=== PATIENT | female | born 1950 | race Caucasian/White ===

== ENCOUNTER → 2017-12-03 | Outpatient (CLI) | payer OTHER ==
[~2017-12-03] MED LIST: BACTRIM DS TAB1 EACH PO; CARISOPRODOL 3350 MG PO; CRESTOR PO; CYMBALTA PO; ESTRACE0.5 MG PO; GOLYTELY SOLU4000 ML PO; HYDROCODONE-AP1 EAC6 PO; IBUPROFEN 800800 M1 PO; IMITREX100 MG PO; KEFLEX500 MG PO; LASIX 40 MG TAB40 M1 PO; LIPITOR 20 MG T20 M1 PO; METHADONE HCL 110 M1 PO; MIRALAX255 GM PO; MOBIC15 MG PO; OXYCODONE HCL20 M1 PO; OXYCONTIN PO; SENOKOT-S1 TA1 PO; STOOL SOFTENER50 MG PO; TRAMADOL 50 MG50 MG PO; VERAPAMIL PO; VICODIN ES TAB1 EACH; XANAX 0.5 MG0.5 M1 PO; XANAX 0.5 MG0.5 MG PO
--- NOTE | 2017-12-08 07:21 | PAINCON ---
[facility] [address] [place] [address] PAIN MANAGEMENT CONSULTATION Name: SAFIAZEV E Room: [facility] Karely#: [id number] Admission: 12/03/17 Attend Phys: Blanca Bianchi Discharge: Date of : 48 Report #: [id number] THIS REPORT FOR: //name// CC: Jennifer Cabrera The patient is a 67-year-old female last seen in the pain clinic on 10/08/2017, continued on methadone 10 mg t.i.d., Cymbalta 30 mg b.i.d. and meloxicam 15 mg daily. Returns to the pain clinic today. She did have lower teeth extracted, has a lower plate denture, which is ill-fitting. She states it is difficult to eat with this. She notes ongoing pain in the left knee, status post two surgeries. She states occasionally the left knee locks (bucket handle tear versus foreign body?). Chronic left shoulder pain, she is following with [facility]. Still has pain in the left thumb, we had tried Voltaren gel last visit and this seems to be efficacious. She returns to the pain clinic today, notes subjective pain score is 5 on a VAS. She is seeing the orthopedic surgeon regarding the left shoulder tomorrow. PHYSICAL EXAMINATION: Shows 5 feet 3 inches, 148 pound female, BMI is 26.3 kilograms per meter squared. Blood pressure 138/76, pulse 79 and respirations 16. Cervical range of motion is adequate. Again pain with all movement of the left arm. Decreased strength to external rotation. Left thumb has subjective "locking," but no thenar eminence dystrophy. Hand grasp is symmetric. Does have a moderately positive Tinel's, but over the ulnar rather than radial. We reviewed the fact that opiate medications are being used to provide analgesia adequate to support activities of daily living, not attempting to achieve a specific pain score on the 0-10 Visual Analog Scale. The current opiate medications are providing sufficient analgesia to allow the patient to participate in activities of daily living. The patient is not exhibiting any aberrant behavior suggestive of drug diversion. The patient is not having any adverse reactions to medications. The patient is not suffering from daytime somnolence or mental acuity changes. The patient is managing opiate-induced constipation with appropriate vmqj-tkz-ovmeetx agents and dietary considerations. The patient was counseled on concern for caution with operating a motor vehicle while using opiate medications. A physical exam was performed and the patient's functional status was evaluated. All patients with back pain were advised against the bed rest greater than 4 days and were advised to return to normal activities. Pain score assessment was noted and the treatment plan was reviewed with the patient. All current medications, both prescribed and OTC were reviewed and reconciled on the electronic medical record. Tobacco screening was accomplished and smoking cessation was advised when indicated. BMI was noted and diet/exercise modification was recommended for all patients following outside normal parameters. I reviewed with the patient today [place] [address] PAIN MANAGEMENT CONSULTATION Name: ZEV BAIG [id number] Admission: 12/03/17 Attend Phys: Blanca Bianchi Discharge: Date of : 48 Report #: [id number] prescription medications, reviewed their responsibility to utilize medications only as prescribed by the physician. They are to seek and receive pain medications only from 1 physician group ( [facility]). They are to use 1 pharmacy and keep the clinic informed if they change pharmacies. Their responsibilities include making followup visits in a timely fashion and to avoid abrupt discontinuation of medication usage. Their responsibilities further include bringing their medications (bottles from the pharmacy with residual pills) to the visit for possible confirmation of pill counts and the patient understands it is their responsibility to submit to random drug screens to ensure both that the medications prescribed are present, and that no other controlled substances are present. All prescriptions provided today were generated electronically. ASSESSMENT: Chronic pain syndrome requiring high risk complex medication management in a patient with history of lumbar radiculopathy and axial back pain. Stable on baseline medication including methadone 10 mg t.i.d., meloxicam 15 mg daily and Cymbalta 30 mg (latter prescribed by Dr. Jennifer Lopes). RECOMMENDATIONS: Continue current medication unchanged. Follow up in 2 months for reevaluation. <ELECTRONICALLY SIGNED> By: Reynaldo Cabrera DO 12/08/17 0721 1523 [id number] Cabrera DO /nt
== END ==
LOC: M.PC 01:38
DX: M54.16 Radiculopathy, lumbar region (principal); G89.4 Chronic pain syndrome

== ENCOUNTER → 2018-01-28 | Outpatient (CLI) | payer OTHER ==
--- NOTE | 2018-01-30 09:51 | PAINCON ---
[address] [address] PAIN MANAGEMENT CONSULTATION Name: SAFIAZEV E Room: [facility] RONY Cali#: [id number] Admission: 01/28/18 Attend Phys: Blanca Bianchi Discharge: Date of : 49 Report #: [id number] THIS REPORT FOR: //name// CC: Aliya Cabrera DATE OF SERVICE: 01/28/2018 The patient is a 67-year-old female being treated for chronic pain syndrome, left shoulder osteoarthritis, component of rotator cuff tear, left knee DJD, axial back pain, lumbar radiculopathy requiring complex medication management. The patient was last seen in the pain clinic 12/03/2017. 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 Jennifer Lopes; meloxicam 15 mg 1 a day. Last drug screen was 06/2017, positive for prescribed medications. She returns to pain clinic today noting pain continues to be problematic. She unfortunately has had multiple comorbidities since we last saw her. She had dental extractions with significant increase in subjective pain at that time. She also notes her left knee seems to be "popping" along with her chronic left shoulder pain. She has not scheduled surgery regarding the left shoulder yet. 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 There is only a nominal cosmetic defect. She rates her pain a 5 on VAS. PHYSICAL EXAMINATION: Otherwise unchanged. BMI is 28 kilograms per meter squared. Blood pressure 112/61, pulse 81, respirations are 18. Rises from chair using armrest. Diffuse axial back pain. Gait is tandem. Lumbar flexion is limited, left shoulder range of motion is limited. She does not use tobacco products. We reviewed the fact that opiate medications are being used to provide analgesia adequate to support activities of daily living, not attempting to achieve a specific pain score on the 0-10 Visual Analog Scale. The current opiate medications are providing sufficient analgesia to allow the patient to participate in activities of daily living. The patient is not exhibiting any aberrant behavior suggestive of drug diversion. The patient is not having any adverse reactions to medications. The patient is not suffering from daytime somnolence or mental acuity changes. The patient is managing opiate-induced constipation with appropriate gzmp-cgu-eyqrjrz [place] [address] PAIN MANAGEMENT CONSULTATION Name: ZEV BAIG [facility] Cali[facility] [id number] Admission: 01/28/18 Attend Phys: Blanca Bianchi Discharge: Date of : 48 Report #: [id number] considerations. The patient was counseled on concern for caution with operating a motor vehicle while using opiate medications. A physical exam was performed and the patient's functional status was evaluated. All patients with back pain were advised against the bed rest greater than 4 days and were advised to return to normal activities. Pain score assessment was noted and the treatment plan was reviewed with the patient. All current medications, both prescribed and OTC were reviewed and reconciled on the electronic medical record. Tobacco screening was accomplished and smoking cessation was advised when indicated. BMI was noted and diet/exercise modification was recommended for all patients following outside normal parameters. I reviewed with the patient today their responsibilities to safeguard prescription medications, reviewed their responsibility to utilize medications only as prescribed by the physician. They are to seek and receive pain medications only from 1 physician group ( [facility]). They are to use 1 pharmacy and keep the clinic informed if they change pharmacies. Their responsibilities include making followup visits in a timely fashion and to avoid abrupt discontinuation of medication usage. Their responsibilities further include bringing their medications (bottles from the pharmacy with residual pills) to the visit for possible confirmation of pill counts and the patient understands it is their responsibility to submit to random drug screens to ensure both that the medications prescribed are present, and that no other controlled substances are present. All prescriptions provided today were generated electronically. ASSESSMENT: Axial back pain. Left knee and left shoulder osteoarthritis and degenerative joint disease requiring complex medication management, stable on baseline medications. RECOMMENDATION: Continue methadone 10 mg t.i.d., meloxicam 15 mg 1 a day, I have taken the liberty of writing for 2 months of current medication. Follow up at that time, we will likely want to repeat a random drug screen sometime this summer, no aberrant behavior suggestive for drug diversion, simply complying with our opiate consent to treat contract, attempted to get 1 random drug screen at least once a year. <ELECTRONICALLY SIGNED> By: Reynaldo Cabrera DO 01/30/18 0951 [id number] Cabrera DO /nt
== END ==
LOC: M.PC 02:29
DX: M19.012 Primary osteoarthritis, left shoulder (principal); M17.12 Unilateral primary osteoarthritis, left knee; M54.16 Radiculopathy, lumbar region; Z79.899 Other long term (current) drug therapy

== ENCOUNTER → 2018-03-25 | Outpatient (CLI) | payer OTHER ==
--- NOTE | 2018-03-26 07:50 | PAINCON ---
[address] [address] PAIN MANAGEMENT CONSULTATION Name: JOSEPHTARAZEV FRANCISCO [id number] Admission: 03/25/18 Attend Phys: Blanca Bianchi Discharge: Date of : 49 Report #: [id number] THIS REPORT FOR: //name// CC: Jennifer Cabrera DATE OF SERVICE: 03/25/2018 The patient is a 68-year-old female, long known to the [facility], typically treated for chronic pain syndrome. She has axial back pain, lumbar radiculopathy and left shoulder pain secondary to osteoarthritis and rotator cuff tear. She requires complex medication management. Last seen in the pain clinic 01/28/2018. She has been stable on methadone 10 mg t.i.d., meloxicam 15 mg one a day. Last random drug screen in 06/2017 was positive for prescribed medications. She returns to Pain Clinic today noting medications continues to be sufficient to enable her to continue to work. She knows she needs surgery on her left shoulder, but for economic reasons, she cannot afford to take time off. Again, medications have enabled her to be quite functional. No problems with daytime somnolence, mental acuity change, or constipation. Rates her subjective pain score of 4 on a VAS. PHYSICAL EXAMINATION: Shows pleasant 5 feet 3 inches, 148-pound female, BMI is 26.3 kg/m2, blood pressure 145/46, pulse 97, respirations 16. Cranial nerves 2-12 are grossly intact. Cervical range of motion is adequate. She has had recent dental implant in her upper plate. Has a little cervical adenopathy, though it is fairly nominal. Tenderness in the left shoulder and arm with decreased range of motion to abduction. The patient manages by using her right arm predominantly. Some diffuse axial back pain, no discrete trigger points noted. She states her left knee occasionally dislocates, but the ligaments appear to be intact at this time. We reviewed the fact that opiate medications are being used to provide analgesia adequate to support activities of daily living, not attempting to achieve a specific pain score on the 0-10 Visual Analog Scale. The current opiate medications are providing sufficient analgesia to allow the patient to participate in activities of daily living. The patient is not exhibiting any aberrant behavior suggestive of drug diversion. The patient is not having any adverse reactions to medications. The patient is not suffering from daytime somnolence or mental acuity changes. The patient is managing opiate-induced constipation with appropriate wmkr-umg-qkqovrb agents and dietary considerations. The patient was counseled on concern for caution with operating a motor vehicle while using opiate medications. A physical exam was performed and the patient's functional status was evaluated. All patients with back pain were advised against the bed rest greater than [address] [place] [place] [address] PAIN MANAGEMENT CONSULTATION Name: ZEV BAIG Room: [facility]#: [id number] Admission: 03/25/18 Attend Phys: Blanca Bianchi Discharge: Date of : 48 Report #: [id number] days and were advised to return to normal activities. Pain score assessment was noted and the treatment plan was reviewed with the patient. All current medications, both prescribed and OTC were reviewed and reconciled on the electronic medical record. Tobacco screening was accomplished and smoking cessation was advised when indicated. BMI was noted and diet/exercise modification was recommended for all patients following outside normal parameters. I reviewed with the patient today their responsibilities to safeguard prescription medications, reviewed their responsibility to utilize medications only as prescribed by the physician. They are to seek and receive pain medications only from 1 physician group ( [facility]). They are to use 1 pharmacy and keep the clinic informed if they change pharmacies. Their responsibilities include making followup visits in a timely fashion and to avoid abrupt discontinuation of medication usage. Their responsibilities further include bringing their medications (bottles from the pharmacy with residual pills) to the visit for possible confirmation of pill counts and the patient understands it is their responsibility to submit to random drug screens to ensure both that the medications prescribed are present, and that no other controlled substances are present. All prescriptions provided today were generated electronically. ASSESSMENT: Symptomatic axial back pain, left shoulder pain secondary to rotator cuff tear, degenerative joint disease, osteoarthritis affecting left knee, chronic pain syndrome requiring complex medication management. RECOMMENDATION: Continue methadone 10 mg t.i.d. I have taken the liberty of writing for 2 months of current medication, meloxicam 15 mg 1 a day. Follow up with Dr. Cam Issa. Random drug screen accomplished today. Should be positive for methadone as the sole opiate. Discharged in good and stable condition. <ELECTRONICALLY SIGNED> By: Reynaldo Cabrera DO 03/26/18 0750 [id number] [id number] Cabrera DO /nt
== END ==
LOC: M.PC 03:57
DX: M75.102 Unspecified rotator cuff tear or rupture of left shoulder, not specified as traumatic (principal); M47.896 Other spondylosis, lumbar region; M17.12 Unilateral primary osteoarthritis, left knee; G89.29 Other chronic pain; M54.5 Low back pain; Z79.899 Other long term (current) drug therapy

== ENCOUNTER → 2018-06-16 | Outpatient (CLI) | payer OTHER ==
--- NOTE | 2018-06-19 08:37 | PAINCON ---
[address] [address] PAIN MANAGEMENT CONSULTATION Name: JOSEPHMICAZEV E Room: [facility] RONY Cali#: [id number] Admission: 06/16/18 Attend Phys: Yan Issa MD Discharge: Date of : 48 Report #: [id number] THIS REPORT FOR: //name// CC: Jennifer Issa DATE OF SERVICE: 06/16/2018 FOLLOWUP COMPLAINT: Low back and left arm pain. HISTORY OF PRESENT ILLNESS: The patient is a 68-year-old female who has been followed in the pain clinic because of chronic pain. States that she is having pain in her low back as well as in her left arm. Rates her pain as a 5/10 at this juncture. Notes that the pain is quite problematic in the morning. Oftentimes get better with her use of her medications. Finds that the Mobic is helpful. Does not have any problems with her GI tract. Noted that methadone was decreased at the last visit from 105 pills to 90 pills per month. She finds that tramadol is working, helped well, and has had no complications with the medications. Overall, she feels that things about 50% better. She has some axial back pain and lumbar radicular pain and left shoulder pain secondary to osteoarthritis and rotator cuff tear. She feels that her complex medical management is beneficial. She continues to work with her daughter. 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 Notes that the pain continues to be quite problematic in her back. States that she can bend over for about 15 seconds, but then has to stop and stand up. She denies any problems with somnolence. Denies any problems with confusion. Feels that her sensorium is clear. Not having problems with constipation. ALLERGIES: No known drug allergies. MEDICATIONS: Xanax 0.5 mg 4 times daily; Lipitor 20 mg; methadone 10 mg 1 tablet a.m., 1 tablet at noon, 1-2 tablets at bedtime; Imitrex 100 mg; Cymbalta 30 mg b.i.d., verapamil 120 mg daily. PAST MEDICAL HISTORY: Emotional problems, joint disease/arthritis, migraine headaches, hypercholesterolemia. PAST SURGICAL HISTORY: Surgery x 2 on the shoulder, knee surgery x 2. 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 REVIEW OF SYSTEMS: Generally good health, loss of appetite, frequent diarrhea, nervousness, [place] [address] PAIN MANAGEMENT CONSULTATION Name: ZEV BAIG [facility] [id number] Admission: 06/16/18 Attend Phys: Yan Issa MD Discharge: Date of : 48 Report #: [id number] LABORATORY DATA: MRI dated 01/29/2017 of the left shoulder. Moderate full thickness rotator cuff tear involving the distal supraspinatus tendon. Large amount of fluid within the subacromial subdeltoid bursa related to the rotator cuff tear and/or bursitis. Full thickness tear of the long head of the biceps tendon, which is distally retracted to the level of the proximal humerus shaft with surrounding edema and hemorrhage. PAIN CLINIC ASSESSMENT: 1. Arthritis involving knees and shoulders. Height 5 feet 3 inches, weight 154 pounds, BMI is 27. 2. Vital signs: Blood pressure 112/53, heart rate 84, respiratory rate 16, room air saturation 96%, temperature 97 degrees. 3. Pain intensity 5/10, generally about a 4 without her medications. 4. Fall risk. The patient has not fallen in the last 2 months. 5. Blood thinner. The patient is not on a blood thinning medication. 6. Hypertension. The patient has been treated for hypertension. 7. Opioid therapy greater than 6 weeks. The patient gets her medication from one source, the pain clinic. 8. Risk assessment tool. 9. Functional assessment tool. 10. Recreational drug use. The patient denies use of recreational drugs. 11. Tobacco: The patient denies use of tobacco. 12. Alcohol. The patient denies use of alcoholic beverages. PHYSICAL EXAMINATION: GENERAL: The patient is a well-developed, well-nourished white female. Appears her stated age. She is alert and oriented x 3. Affect is appropriate. HEENT: Normocephalic, atraumatic. Extraocular eye muscles intact. Mucous membranes are moist. Sclerae nonicteric. NECK: Without JVD, adenopathy, or bruits. HEART: Regular rate. S1, S2. LUNGS: Clear to auscultation without rhonchi or rales. ABDOMEN: Nontender. EXTREMITIES: Upper extremity muscle strength is judged to be 5/5 on the right arm, 4+/5 for the left. Deep tendon reflexes are +3 at the biceps bilaterally, +1 for the brachioradialis and trace for triceps. Deep tendon reflexes in the lower extremities, +2 at the knees and +1 at the ankles. Muscle strength is judged to be 5/5 for the major muscle groups in the lower extremity. The patient complains of pain and discomfort in the lower back. Complains of some pain and discomfort up in the mid portion of her back as well. States that bending over forward to touch her toes for greater than 15 seconds causes significant pain and discomfort. IMPRESSION: 1. Hyperlipidemia. [facility] [address] [place] [address] PAIN MANAGEMENT CONSULTATION Name: ZEV BAIG Room: [facility]#: [id number] Admission: 06/16/18 Attend Phys: Yan Issa MD Discharge: Date of : 48 Report #: [id number] 2. Chronic pain syndrome, low back and left shoulder. 3. Hypertension. 4. Arthritis involving the left shoulder. 5. Depression. RECOMMENDATIONS: We discussed treatment options with the patient. We will continue with her current medical regimen pillar. A script for Mobic, methadone and tramadol have been provided. The patient has had no problem with the tramadol. She feels that it is helpful with decreasing her pain. She would like to continue the medication. We have discussed the possible problems with opioids, which could be dependence as well as in decreasing improvement as time goes on secondary to tolerance. The patient keeps her medication in a guarded area. A 3 months prescription for medication has been written. She will call us if she has any concerns. We would like to thank you for letting us participate in her care. <ELECTRONICALLY SIGNED> By: Yan Issa MD 06/19/18 0837 [id number]. MD kareem Neves
== END ==
LOC: M.PC 04:48
DX: M19.012 Primary osteoarthritis, left shoulder (principal); I10 Essential (primary) hypertension; E78.5 Hyperlipidemia, unspecified; G89.4 Chronic pain syndrome; F32.9 Major depressive disorder, single episode, unspecified

== ENCOUNTER → 2018-09-08 | Outpatient (CLI) | payer OTHER ==
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
== END ==
LOC: M.PC 08:14
DX: M13.812 Other specified arthritis, left shoulder (principal); G89.29 Other chronic pain; M54.5 Low back pain; I10 Essential (primary) hypertension; E78.5 Hyperlipidemia, unspecified; F32.9 Major depressive disorder, single episode, unspecified

== ENCOUNTER → 2018-12-01 | Outpatient (CLI) | payer OTHER ==
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
== END ==
LOC: M.PC 04:54
DX: E78.5 Hyperlipidemia, unspecified (principal); G89.29 Other chronic pain; M25.512 Pain in left shoulder; M54.5 Low back pain; I10 Essential (primary) hypertension; M17.0 Bilateral primary osteoarthritis of knee; F32.9 Major depressive disorder, single episode, unspecified

== ENCOUNTER 2019-02-03 16:00 | Emergency (ER) | payer OTHER ==
[~2019-02-03] VITALS: Ht 160 cm; Wt 72.6 kg
[2019-02-03 17:55] VITALS: BP 115/70
== END 2019-02-03 17:57 | disposition home or self-care (01) ==
LOC: M.ERS 16:00
DX: S83.8X2A Sprain of other specified parts of left knee, initial encounter (principal); M25.552 Pain in left hip; F17.200 Nicotine dependence, unspecified, uncomplicated; M17.0 Bilateral primary osteoarthritis of knee; M54.9 Dorsalgia, unspecified; G89.29 Other chronic pain; Z90.10 Acquired absence of unspecified breast and nipple; Z90.711 Acquired absence of uterus with remaining cervical stump; W10.8XXA Fall (on) (from) other stairs and steps, initial encounter; Y92.89 Other specified places as the place of occurrence of the external cause; Y93.89 Activity, other specified; Y99.8 Other external cause status

== ENCOUNTER → 2019-02-23 | Outpatient (CLI) | payer OTHER ==
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
== END ==
LOC: M.PC 04:52
DX: G89.29 Other chronic pain (principal); M54.5 Low back pain; M25.512 Pain in left shoulder; I10 Essential (primary) hypertension; M17.12 Unilateral primary osteoarthritis, left knee; F32.9 Major depressive disorder, single episode, unspecified; E78.5 Hyperlipidemia, unspecified; Z79.891 Long term (current) use of opiate analgesic; Z79.899 Other long term (current) drug therapy

== ENCOUNTER → 2019-05-18 | Outpatient (CLI) | payer OTHER ==
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
== END ==
LOC: M.PC 05:12
DX: S40.011D Contusion of right shoulder, subsequent encounter (principal); M54.5 Low back pain; M17.0 Bilateral primary osteoarthritis of knee; M19.012 Primary osteoarthritis, left shoulder; G89.29 Other chronic pain; M19.011 Primary osteoarthritis, right shoulder; E78.5 Hyperlipidemia, unspecified; I10 Essential (primary) hypertension; F32.9 Major depressive disorder, single episode, unspecified; Z79.899 Other long term (current) drug therapy; Z79.891 Long term (current) use of opiate analgesic; W10.9XXD Fall (on) (from) unspecified stairs and steps, subsequent encounter

== ENCOUNTER → 2019-08-10 | Outpatient (CLI) | payer OTHER ==
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
== END ==
LOC: M.PC 05:13
DX: Z76.0 Encounter for issue of repeat prescription (principal); M25.562 Pain in left knee; G89.29 Other chronic pain; E78.5 Hyperlipidemia, unspecified; I10 Essential (primary) hypertension; F32.9 Major depressive disorder, single episode, unspecified; Z79.899 Other long term (current) drug therapy; Z79.891 Long term (current) use of opiate analgesic

== ENCOUNTER → 2019-11-02 | Outpatient (CLI) | payer OTHER ==
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
== END ==
LOC: M.PC 04:28
DX: M25.562 Pain in left knee (principal); G89.29 Other chronic pain; E78.5 Hyperlipidemia, unspecified; I10 Essential (primary) hypertension; F32.9 Major depressive disorder, single episode, unspecified

== ENCOUNTER → 2020-01-27 | Outpatient (CLI) | payer OTHER ==
--- NOTE | 2020-01-28 09:01 | OP ---
[address] [address] OPERATIVE REPORT Name: ZEV BAIG Room: [facility]#: [id number] Admission: 01/27/20 Attend Phys: Yan Issa MD Discharge: Date of : 48 Report #: [id number] THIS REPORT FOR: //name// cc: Jennifer Lopes MD, Katrina MD THIS REPORT FOR: //name// CC: Jennifer Issa DATE OF SERVICE: 01/27/2020 CHIEF COMPLAINT: Pain in the low back area and the left and right side. HISTORY: The patient is a 69-year-old female who has been followed in the pain clinic because of chronic pain. She returns today with a desire to renew her medications. Continues to have pain in the low back area, which radiates from the left side near the midline and out to the hip area as well as on the right side from the midline down to the hip area. She rates the pain as 4/10 today. She states that she has been compliant with the COVID-19 requests. She is staying home. She feels that her medications continue to add benefit. She is not having any side effects. She is able to think clearly. She notes that walking, sitting, standing can exacerbate her discomfort. She has had no real changes since we saw her last. Her desire is to continue with her medications. She is not working outside of the house. She is somewhat concerned about her granddaughter. Her granddaughter has a high risk . She has been moved to another area of the [facility]. There is less risky. ALLERGIES: No known drug allergies. CURRENT MEDICATIONS: Zanaflex 0.5 mg q.i.d., Lipitor 20 mg, methadone 10 mg 1 p.o. daily at noon, Imitrex 1000 mg, Cymbalta 300 mg b.i.d., verapamil 120 mg daily. PAIN CLINIC ASSESSMENT/PQRS: 1. The patient does have some arthritic changes in her knee. She has had arthritis in her shoulders. She has had an ACL repair in the left knee. She is not being treated for rheumatoid arthritis. 2. Height 5 feet 3 inches, weight 150 pounds, BMI is 26. 3. Vital signs: Blood pressure 137/47, heart rate 81, respiratory rate 16, room air saturation 97%. 4. Pain intensity is 4/10. 5. Fall history: The patient has not fallen in the last 3 months. 6. Blood thinner. The patient is not on a blood thinning medication. 7. Hypertension. The patient is not being [place] [address] OPERATIVE REPORT Name: ZEV BAIG Room: [facility]#: [id number] Admission: 01/27/20 Attend Phys: Yan Issa MD Discharge: Date of : 48 Report #: [id number] 8. Opioids greater than 6 weeks. The [facility]. 9. Risk assessment tool, low for opioids. 10. Functional assessment tool has been reviewed. 11. Recreational drug use: The patient denies. 12. Tobacco: The patient denies. 13. Alcohol. The patient denies use of alcoholic beverages except on rare occasion. PHYSICAL EXAMINATION: GENERAL: The patient is a well-developed, well-nourished white female. Appears her stated age. She is alert and oriented x 3. Her affect is appropriate. Speech is fluent. HEENT: Normocephalic, atraumatic. Extraocular eye muscles intact. Sclerae nonicteric. Mucous membranes are moist. NECK: Without adenopathy or JVD. LUNGS: Clear to auscultation. ABDOMEN: Nontender. MUSCULOSKELETAL: The patient without significant scoliosis, kyphosis or lordosis. The patient has pain and discomfort in the left knee, also, has some pain and discomfort in the low back area, left as well as right side. IMPRESSION: 1. Chronic pain, low back area. 2. Chronic pain, left knee. 3. Hyperlipidemia. 4. Chronic pain, left shoulder. 5. Hypertension. 6. Depression. RECOMMENDATIONS: We discussed treatment options with the patient. Risks and benefits of opioid use have been reviewed again. The patient is aware that opioid medications can become less effective as time goes on. Some patients have become addicted to the medication and shown signs of addiction. The patient is showing no signs of addiction. She is finding that the medication helps her with her pain. She is able to think clearly. She is able to engage in activities of daily living with less discomfort. She is aware that the Coronavirus is problematic. States that she is staying in home and in place with social isolation as much as possible. A script for her medications of methadone 10 mg 1 p.o. t.i.d. has been rewritten. The patient will also continue tramadol 50 mg t.i.d. She will continue with meloxicam. She will call us if she has any concerns. We would like to thank you for letting us [address] [address] OPERATIVE REPORT Name: ZEV BAIG [id number] Admission: 01/27/20 Attend Phys: Yan Issa MD Discharge: Date of : 48 Report #: [id number] participate in her care. We hope she continues to improve. She has been provided medication for the next 3 months. <ELECTRONICALLY SIGNED> By: Yan Issa MD 01/28/20 0901 1241 1300N. Cam Issa MD /nt
== END ==
LOC: M.PC 10:12
DX: M54.5 Low back pain (principal); M25.562 Pain in left knee; M25.512 Pain in left shoulder; I10 Essential (primary) hypertension; F32.9 Major depressive disorder, single episode, unspecified

== ENCOUNTER → 2020-04-20 | Outpatient (CLI) | payer OTHER ==
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
== END ==
LOC: M.PC 08:00
PROVIDERS: ATTEND Anesthesiology Pain Medicine
DX: M54.5 Low back pain (principal); G89.29 Other chronic pain; M25.562 Pain in left knee; M19.011 Primary osteoarthritis, right shoulder; M19.012 Primary osteoarthritis, left shoulder; I10 Essential (primary) hypertension; E78.5 Hyperlipidemia, unspecified; F32.9 Major depressive disorder, single episode, unspecified; Z79.899 Other long term (current) drug therapy

== ENCOUNTER → 2020-07-13 | Outpatient (CLI) | payer OTHER ==
--- NOTE | 2020-07-27 08:38 | PAINCON ---
[address] [address] PAIN MANAGEMENT CONSULTATION Name: ZEV BAIG Room: [facility]#: [id number] Admission: 07/13/20 Attend Phys: Yan Issa MD Discharge: Date of : 48 Report #: [id number] THIS REPORT FOR: //name// cc: Jennifer Lopes MD, Katrina MD ~ THIS REPORT FOR: //name// CC: Jennifer Issa DATE OF SERVICE: 07/13/2020 CHIEF COMPLAINT: Back pain and knee pain. HISTORY: The patient is a 70-year-old female who has been followed in the pain clinic because of chronic pain involving her low back and left knee. She notes that the pain in her left knee involves her ankle as well. She notes a throbbing sensation. She is considering seeing the orthopedic physician. She has not been able to because of the rao virus. Her left leg "gives out at times. She rates her pain as a 4/10. Feels that her methadone and tramadol are helpful. Feels that they provide about 60% of pain relief. Notes that with activity, walking, sitting and standing, she has more discomfort. She has returned today for renewal of her medications. ALLERGIES: No known drug allergies. CURRENT MEDICATIONS: Zanaflex 0.5 mg q.i.d., Lipitor 20 mg, methadone 10 mg 1 p.o. daily at noon, Imitrex 1000 mg, Cymbalta 300 mg b.i.d., verapamil 120 mg. PAIN CLINIC ASSESSMENT AND PQRS: 1. The patient does have some arthritic changes in her left knee. She also complains of arthritis in her shoulders. She has had ACL repair in the left knee. She is not being treated for rheumatoid arthritis. 2. Height 5 feet 3 inches, weight 147 pounds, BMI is 26. 3. Vital signs: Blood pressure 118/68, pulse 80, respiratory rate 16, room air saturation 97%, temperature 97.0. 4. Pain intensity 02/10. 5. Fall history: The patient has not fallen in the last 3 months. 6. Does feel that her legs might give out at times. 7. Blood thinner. The patient is not on a blood thinning medication. 8. Hypertension. The patient is not being treated for hypertension. 9. Opioids greater than 6 weeks. [facility] 10. Risk assessment tool, low for opioid use. 11. Functional assessment tool has been reviewed. 12. Recreational [place] [address] PAIN MANAGEMENT CONSULTATION Name: ZEV BAIG Room: [facility]#: [id number] Admission: 07/13/20 Attend Phys: Yan Issa MD Discharge: Date of : 48 Report #: [id number] 13. Tobacco: The patient denies. 14. Alcohol: The patient denies use of alcoholic beverages except on rare occasion. PHYSICAL EXAMINATION: GENERAL: The patient is a well-developed, well-nourished white female. Appears her stated age. She is alert and oriented x 3. Her affect is appropriate. Speech is fluent. HEENT: Normocephalic, atraumatic. Extraocular eye muscles intact. The patient is wearing facial covering. NECK: Without adenopathy. LUNGS: Clear to auscultation. ABDOMEN: Nontender. MUSCULOSKELETAL: Without significant scoliosis, kyphosis or lordosis. The patient has pain and discomfort in her left knee as well as pain and discomfort in the lower portion of her back and on the right side. IMPRESSION: 1. Chronic pain in low back area. 2. Chronic pain, left knee. 3. Hyperlipidemia. 4. Chronic pain, left shoulder. 5. Hypertension. 6. Depression. RECOMMENDATIONS: We discussed treatment options with the patient. We will continue with her current medical regimen of opioids. She feels the methadone medication is helpful. She will continue to take 10 mg t.i.d. She will also continue with tramadol p.r.n. She will call us if she has any concerns. Overall, things seem to be going reasonably well. She has 60% improvement with use of her medications. She rates her pain as a 4/10. She was considering moving from her uduyim-bo-ost's house. Hopefully, she will not exacerbate her discomfort and pain when she moves. <ELECTRONICALLY SIGNED> By: Yan Issa MD 07/27/20 0838 [id number] [id number]. Cam Issa MD /saima
== END ==
LOC: M.PC 09:36
PROVIDERS: ATTEND Anesthesiology Pain Medicine
DX: M54.5 Low back pain (principal); M25.562 Pain in left knee; G89.29 Other chronic pain; E78.5 Hyperlipidemia, unspecified; M25.512 Pain in left shoulder; I10 Essential (primary) hypertension; F32.9 Major depressive disorder, single episode, unspecified; Z79.899 Other long term (current) drug therapy

== ENCOUNTER → 2020-10-05 | Outpatient (CLI) | payer OTHER | LOC: M.PC 09:13 | PROVIDERS: ATTEND Anesthesiology Pain Medicine | DX: M54.5 Low back pain (principal); M25.562 Pain in left knee; G89.29 Other chronic pain; E78.5 Hyperlipidemia, unspecified; M25.512 Pain in left shoulder; I10 Essential (primary) hypertension; F32.9 Major depressive disorder, single episode, unspecified ==

== ENCOUNTER → 2020-12-28 | Outpatient (CLI) | payer OTHER | LOC: M.PC 08:06 | PROVIDERS: ATTEND Anesthesiology Pain Medicine | DX: M54.5 Low back pain (principal); G89.29 Other chronic pain; M25.562 Pain in left knee; E78.5 Hyperlipidemia, unspecified; M25.512 Pain in left shoulder; I10 Essential (primary) hypertension; F32.9 Major depressive disorder, single episode, unspecified; Z88.8 Allergy status to other drugs, medicaments and biological substances; Z79.899 Other long term (current) drug therapy ==

== ENCOUNTER 2021-03-04 19:46 | Inpatient (IN) | payer OTHER ==
[~2021-03-04] VITALS: Ht 160 cm; Wt 58.6 kg
[2021-03-04 19:55] VITALS: BP 108/56
[2021-03-04 20:58] LABS: HEMATOCRIT 33.2 % (37.0-47.0); HEMOGLOBIN 10.8 gm/dL (12.0-15.0); MCH 28.4 pg (26.0-34.0); MCHC 32.6 g/dL (28.0-37.0); MCV 87.3 fL (80.0-100.0); NUCLEATED RBCS 0 /100WBC; PLATELET COUNT* 340 thou/uL (150-400); RDW-CV 15.7 % (10.5-14.5); WBC 17.6 thou/uL (4.0-11.0)
[2021-03-04 21:00] LABS: CREATININE 0.8 mg/dL (0.6-1.3); POTASSIUM 3.7 mmol/L (3.5-5.1)
[2021-03-04 21:00] LABS: PCO2 28.8 mmHg (35.0-45.0); pH 7.421 (7.340-7.450)
[2021-03-04 21:01] LABS: PO2 58.1 mmHg (75.0-100.0)
[2021-03-04 21:03] LABS: APTT 30.2 Seconds (25.0-31.3); INR 1.5; PROTIME 15.1 Seconds (9.20-11.50)
[2021-03-04 21:04] LABS: ALBUMIN 3.2 g/dL (3.4-5.0); MAGNESIUM 2.3 mg/dL (1.8-2.4); TOTAL PROTEIN 7.3 g/dL (6.4-8.2)
[2021-03-04 21:53] LABS: ABSOLUTE LYMPHOCYTES 0.7 thou/uL (0.8-5.3); ABSOLUTE MONOCYTES 0.5 thou/uL (0.0-1.2); ABSOLUTE NEUTROPHILS 16.4 thou/uL (1.6-8.1); ATYPICAL LYMPHS 1 %
[2021-03-04 21:55] LABS: PLATELET ESTIMATE ADEQUATE
[2021-03-04 23:30] VITALS: BP 110/47
[2021-03-04] MEDS ORDERED: DULOXETINE HCL60 MG PO (23:55)
[2021-03-05] VITALS (55 sets, daily range): BP systolic 68–154; BP diastolic 32–130
[2021-03-05 05:17] LABS: URINE BILIRUBIN NEGATIVE (Negative); URINE BLOOD 2+ (Negative); URINE CLARITY CLEAR; URINE COLOR YELLOW; URINE GLUCOSE-RANDOM NEGATIVE (Negative); URINE KETONES TRACE (Negative); URINE LEUKOCYTES-REFLEX 1+ (Negative); URINE NITRITE-REFLEX NEGATIVE (Negative); URINE PROTEIN NEGATIVE (Negative); URINE SPECIFIC GRAVITY 1.025 (1.005-1.030); URINE UROBILINOGEN 0.2 E.U./dl (0.2-1.0)
[2021-03-05 05:22] LABS: BE -4.2 mmol/L (-2 to +3); PCO2 36.5 mmHg (35.0-45.0); pH 7.369 (7.340-7.450)
[2021-03-05 05:25] LABS: AMP/METHAMP Negative (Negative); BARBITURATES Negative (Negative); BENZODIAZEPINES POSITIVE (Negative); COCAINE Negative (Negative); METHADONE POSITIVE (Negative); OPIATES POSITIVE (Negative); PCP Negative (Negative); THC Negative (Negative)
[2021-03-05 05:32] LABS: PO2 57.3 mmHg (75.0-100.0)
[2021-03-05 05:35] LABS: BACTERIA-REFLEX >30 Many /HPF (None Seen); CASTS None Seen /LPF (None Seen); CRYSTALS None Seen /LPF (None Seen); MUCUS 4-6 Moderate strn/LPF (None Seen); SQUAMOUS >10 Many /LPF (0-3); URINE RBC 3-10 Few /HPF (0-2); URINE WBC-REFLEX 6-15 Few /HPF (0-5)
[2021-03-05 08:35] LABS: BE -2.8 mmol/L (-2 to +3); PCO2 36.5 mmHg (35.0-45.0); pH 7.392 (7.340-7.450)
[2021-03-05 08:38] LABS: PO2 56.4 mmHg (75.0-100.0)
[2021-03-05 12:32] LABS: BE -5.1 mmol/L (-2 to +3); PO2 97.8 mmHg (75.0-100.0)
[2021-03-05 12:46] LABS: ABSOLUTE BASOPHILS 0.1 thou/uL (0.0-0.2); ABSOLUTE LYMPHOCYTES 1.9 thou/uL (0.8-5.3); ABSOLUTE MONOCYTES 0.6 thou/uL (0.0-1.2); ABSOLUTE NEUTROPHILS 21.9 thou/uL (1.6-8.1); BASOPHILS 0.3 %; EOSINOPHILS 0.2 %; HEMATOCRIT 38.1 % (37.0-47.0); HEMOGLOBIN 11.3 gm/dL (12.0-15.0); LYMPHOCYTES 7.9 %; MCH 28.1 pg (26.0-34.0); MCHC 29.8 g/dL (28.0-37.0); MONOCYTES 2.6 %; MPV 7.1 fl. (7.2-11.1); NUCLEATED RBCS 0 /100WBC; PLATELET COUNT* 331 thou/uL (150-400); RBC 4.04 mil/uL (4.20-5.00); RDW-CV 16.7 % (10.5-14.5); WBC 24.6 thou/uL (4.0-11.0)
[2021-03-05 12:51] LABS: MCV 94.3 fL (80.0-100.0)
[2021-03-05 12:59] LABS: APTT 29.8 Seconds (25.0-31.3); INR 1.4; PROTIME 14.3 Seconds (9.20-11.50)
[2021-03-05 13:03] LABS: ALBUMIN 3.1 g/dL (3.4-5.0); ALKALINE PHOSPHATASE 148 U/L (46-116); ANION GAP 12 mmol/L (7-16); BUN 17 mg/dL (7-18); CALCIUM 8.8 mg/dL (8.5-10.1); CHLORIDE 102 mmol/L (98-107); CO2 24 mmol/L (21-32); CREATININE 0.6 mg/dL (0.6-1.3); GLUCOSE 110 mg/dL (70-99); POTASSIUM 3.5 mmol/L (3.5-5.1); SGOT 71 U/L (15-37); SGPT 27 U/L (30-65); SODIUM 138 mmol/L (136-145); TOTAL BILIRUBIN 1.1 mg/dL (<0.1-1.0); TOTAL PROTEIN 7.5 g/dL (6.4-8.2); TROPONIN-I LEVEL <0.06 ng/mL (<0.06)
--- NOTE | 2021-03-05 13:42 | EKG ---
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 03/05/21 1342 58 58 Angel Lyman MD, [facility] /EPI
--- NOTE | 2021-03-05 17:14 | 2DMMODE ---
[place] [address] 2 D/M-MODE ECHOCARDIOGRAM Name: JOSEPHTARAZEV FRANCISCO Jose Room: [address] ADM IN [place].#: [id number] Admission: 03/04/21 Attend Phys: Francis Muñiz, Discharge: Date of : 48 Date of Service: 03/05/21 1713 Report #: [id number] THIS REPORT FOR: cc: Jennifer Lopes MD, Katrina MD Blick,Angel Lacy MD [facility] ~ APPROVED REPORT Study performed: 03/05/2021 14:05:43 EXAM: Comprehensive 2D, Doppler, and color-flow Echocardiogram Patient Location: In-Patient Room #: 003 Status: routine BSA: 1.68 HR: 67 bpm BP: 129/107 mmHg Rhythm: NSR Other Information Study Quality: Good Indications Dyspnea 2D Dimensions IVSd: 9.63 (7-11mm) LVOT Diam: 19.53 (18-24mm) LVDd: 46.64 mm PWd: 8.54 (7-11mm) Ascending Ao: 31.55 (22-36mm) LVDs: 29.40 (25-40mm) Aortic Root: 30.01 mm Volumes Left Atrial Volume (Systole) LA ESV Index: 28.50 mL/m2 Aortic Valve AoV Peak Jose.: 1.77 m/s AO Peak Gr.: 12.53 mmHg LVOT Max P.51 mmHg AO Mean Gr.: 6.44 mmHg LVOT Mean P.09 mmHg LVOT Max V: 1.28 m/s AO V2 VTI: 27.66 cm LVOT Mean V: 0.80 m/s RANJIT (VTI): 2.39 cm2 LVOT V1 VTI: 22.05 [place] [address] 2 D/M-MODE ECHOCARDIOGRAM Name: ZEV BAIG Room: [address]#: [id number] Admission: 03/04/21 Attend Phys: Francis Muñiz, Discharge: Date of : 48 Date of Service: 03/05/21 1713 Report #: [id number] Mitral Valve E/A Ratio: 0.73 MV Decel. Time: 232.06 ms MV E Max Jose.: 0.58 m/s MV PHT: 67.30 ms MVA (PHT): 3.27 cm2 TDI E/Lateral E': 3.63 E/Medial E': 5.27 Medial E' Jose.: 0.11 m/s Lateral E' Jose.: 0.16 m/s Pulmonary Valve PV Peak Jose.: 1.16 m/s PV Peak Gr.: 5.35 mmHg Tricuspid Valve RAP Estimate: 5.00 mmHg TR Peak Gr.: 37.75 mmHg RVSP: 42.00 mmHg PA Pressure: 42.00 mmHg Left Ventricle The left ventricle is normal size. There is normal LV segmental wall motion. There is normal left ventricular wall thickness. Left ventricular systolic function is normal. The left ventricular ejection fraction is within the normal range. LVEF is 60-65%. Right Ventricle Right ventricle is dilated. The right ventricular systolic function is normal. Atria The left atrium size is normal. Right atrium is dilated. Aortic Valve Mild aortic valve sclerosis. No aortic regurgitation is present. There is no aortic valvular stenosis. Mitral Valve The mitral valve is normal in structure. Trace mitral regurgitation. No evidence of mitral valve stenosis. Tricuspid Valve The tricuspid valve is normal in structure. Mild tricuspid regurgitation. estimated pa pressure 50 mm [place] [address] 2 D/M-MODE ECHOCARDIOGRAM Name: ZEV BAIG Room: [address]#: [id number] Admission: 03/04/21 Attend Phys: Francis Muñiz, Discharge: Date of : 48 Date of Service: 03/05/21 1713 Report #: [id number] The pulmonary valve is normal in structure. Trace pulmonic regurgitation. Great Vessels The aortic root is normal in size. IVC is normal in size and collapses >50% with inspiration. Pericardium There is no pericardial effusion. <Conclusion> LVEF is 60-65%. Right ventricle is dilated. Mild tricuspid regurgitation. estimated pa pressure 50 mm Hg. <ELECTRONICALLY SIGNED> By: Angel Lyman MD, [facility] 03/05/21 171 171 12 Angel Lyman MD, FACC /INF
[2021-03-06] VITALS (44 sets, daily range): BP systolic 79–155; BP diastolic 46–90
[2021-03-06 04:47] LABS: CALCIUM 8.6 mg/dL (8.5-10.1); CREATININE 0.5 mg/dL (0.6-1.3); POTASSIUM 3.6 mmol/L (3.5-5.1)
[2021-03-06 04:48] LABS: HEMOGLOBIN 10.1 gm/dL (12.0-15.0); MCH 28.7 pg (26.0-34.0); MCHC 32.5 g/dL (28.0-37.0); NUCLEATED RBCS 0 /100WBC; PLATELET COUNT* 294 thou/uL (150-400); RBC 3.51 mil/uL (4.20-5.00); RDW-CV 15.4 % (10.5-14.5)
[2021-03-06 04:50] LABS: MCV 88.4 fL (80.0-100.0); WBC 9.1 thou/uL (4.0-11.0)
[2021-03-06 04:53] LABS: PHOSPHORUS* 3.3 mg/dL (2.5-4.9)
[2021-03-06 05:02] LABS: ALBUMIN 2.4 g/dL (3.4-5.0); CALCIUM 8.6 mg/dL (8.5-10.1); CREATININE 0.5 mg/dL (0.6-1.3); MAGNESIUM 2.1 mg/dL (1.8-2.4); POTASSIUM 3.8 mmol/L (3.5-5.1); TOTAL BILIRUBIN 0.5 mg/dL (<0.1-1.0); TOTAL PROTEIN 6.1 g/dL (6.4-8.2)
[2021-03-06 06:29] LABS: ABSOLUTE LYMPHOCYTES 0.4 thou/uL (0.8-5.3); ABSOLUTE MONOCYTES 0.2 thou/uL (0.0-1.2); ABSOLUTE NEUTROPHILS 8.6 thou/uL (1.6-8.1)
[2021-03-06 06:31] LABS: PLATELET ESTIMATE ADEQUATE
--- NOTE | 2021-03-06 07:38 | CON ---
[address] [address] CONSULTATION Name: ZEV BAIG Room: [address] IN .R.#: [id number] Admission: 03/04/21 Attend Phys: Francis Muñiz MD Discharge: Date of : 48 Report #: [id number] THIS REPORT FOR: cc: Jennifer Lopes MD, Katrina MD Pervez,Raymond NYE ~ DOC #: [id number] Raymond Bird MD DATE OF CONSULTATION: 03/05/2021 CONSULT REQUESTED BY: Dr. Garcia Hilton. REASON FOR CONSULTATION: Acute hypoxemic respiratory failure. HISTORY OF PRESENT ILLNESS: This is a 70-year-old female with past medical history as mentioned below. The patient does have an extensive history of smoking, also has a history of vaping and does take significant amounts of narcotics including methadone at home for pain control. She does not have a previous diagnosis of COPD, though this time, the patient is admitted with acute respiratory failure. She is also reported to have altered mental status, was confused and hallucinating, at times also complaining of headaches. The patient was in respiratory distress and was hypoxemic with a heated high-flow nasal cannula in place with 100% FiO2 and she was not keeping a BiPAP in place and therefore, she required to be endotracheally intubated. Right now, we have her on 100% FIO2 with 7 of PEEP. After sedation, after intubation, her O2 saturation has come up to the high 90s. The patient is on the ventilator and therefore is unable to provide a further history or review of systems. The patient's initial blood pressures were low. Last blood pressure is mildly elevated. PAST MEDICAL HISTORY: Chronic back pain, she takes methadone as well as tramadol at home. Also has arthritis. PAST SURGICAL HISTORY: Left knee surgery, facelift, liposuction, breast reduction, hernia on bladder repair, partial hysterectomy, tummy tuck. SOCIAL HISTORY: Extensive history of smoking. She also is reported to have been vaping. She does take prescribed narcotics as above. Information regarding alcohol intake is not available. CURRENT MEDICATIONS: List in [facility] reviewed. Home medication list also in [facility] reviewed. Also, see discussion above. ALLERGIES: [place] [address] CONSULTATION Name: ZEV BAIG Room: [address]#: [id number] Admission: 03/04/21 Attend Phys: Francis Muñiz MD Discharge: Date of : 48 Report #: [id number] FAMILY HISTORY: No pertinent family history known at this time. PHYSICAL EXAMINATION: GENERAL: The patient had just been intubated. VITAL SIGNS: Heart rate around 85 and a blood pressure of 154/100. She has a tidal volume of 500, AC rate set at 14, FIO2 100%, PEEP is 7, saturating 97-98%. She is afebrile with a temperature of 36.8, blood pressure 150/100. She was not overbreathing the ventilator. HEENT: Head is normocephalic and atraumatic. Left pupil is mid position and reactive. Right pupil examination was limited. Endotracheal tube was low in the trachea. NECK: Does not show raised JVP asymmetry, mass or lymph nodes. CHEST: Symmetrical expansion on inspection and palpation. On auscultation, breath sounds are bilaterally equal, but decreased. No added sounds. HEART: Regular. There is no murmur. ABDOMEN: Soft and nontender. LOWER EXTREMITIES: Show no edema, no calf tenderness. SKIN: Dry and intact. NEUROLOGIC: Moves all extremities bilaterally equally and spontaneously with no focal deficit identified prior to intubation as described by the staff. Immediately after intubation at the time of my evaluation, she did not move extremities to painful stimuli, but she has just been intubated and received medications for intubation. LABORATORY DATA: The patient's chest x-ray was reviewed and compared with the patient's previous chest x-ray, there are extensive bilateral infiltrates, right greater than left. There is a radiopaque density at the right lung base, which in fact looks larger than before as suspected there is increasing atelectasis, likely secondary to mucus plugging. The patient's arterial blood gases are in [facility] and these are reviewed. The patient's lab work is in [facility], this is also reviewed. The patient's COVID-19 antigen is negative. PCR is pending. Based on chest x-ray findings, still have suspicion of COVID-19. She had a CT head as well which shows no acute process. Interestingly, there is mild elevation in INR, initially to 1.5. ASSESSMENT AND PLAN: 1. Acute hypoxemic respiratory failure. Considering that she takes narcotics at home, I will go ahead and start her on a fentanyl drip. She is on propofol which I would continue. We may be able to cut back when she is on fentanyl. She needs better IV access. Therefore, I recommend placing a central line, will do an arterial blood gas, if she remains significantly hypoxemic, then I will be inclined to increase PEEP. 2. Pulmonary infiltrates. There are extensive pulmonary infiltrates. I have suspicion of COVID-19. Therefore, I went ahead and ordered remdesivir. We will [address] [address] CONSULTATION Name: JOSEPHTARAMARYAMZEV E Room: [address] IN M.R.#: [id number] Admission: 03/04/21 Attend Phys: Francis Muñiz MD Discharge: Date of : 48 Report #: [id number] broaden antibiotic coverage to vancomycin and cefepime. The patient is on azithromycin, we will continue. Various cultures and serologies are ordered. If she fails to improve or if the COVID-19 PCR is positive, then I would recommend giving her Actemra. 3. Chronic obstructive pulmonary disease exacerbation. I will continue Solu-Medrol; however, cut down the dose to 62.5 every 6 hours for now. If she continues to oxygenate well, we will be inclined to cut it back further. Continue DuoNeb which has changed to scheduled. It does appear to me that the patient has previously undiagnosed chronic obstructive pulmonary disease. 4. Atelectasis. We will give her 3 doses of Mucomyst and then we will reassess. 5. Evaluation of cardiac function, initial troponin I was negative and ProBNP was elevated. Pending review of labs, I held her IV fluids. We will repeat a troponin. Recommend also getting an echo. 6. Deep venous thrombosis prophylaxis, Lovenox. 7. GI prophylaxis, note that the patient is on Protonix. 8. C. difficile prophylaxis. We will check for contraindications. If no contraindications, then I will be inclined to start a probiotic. The patient is critically ill at this time. Total time spent providing critical care to this patient today exceeds 50 minutes. MD NASIR Lopez/RUBA <ELECTRONICALLY SIGNED> By: Raymond Bird MD 03/06/21 0738 [id number] Bird MD /nt
[2021-03-06 08:58] LABS: BE -1.3 mmol/L (-2 to +3); PCO2 39.1 mmHg (35.0-45.0); PO2 67.2 mmHg (75.0-100.0); pH 7.395 (7.340-7.450)
[2021-03-06 17:30] LABS: CALCIUM 8.9 mg/dL (8.5-10.1); CREATININE 0.6 mg/dL (0.6-1.3); MAGNESIUM 2.3 mg/dL (1.8-2.4); POTASSIUM 3.1 mmol/L (3.5-5.1)
[2021-03-06 22:06] LABS: MYCOPLASMA PNEUMONIA IgM <770 U/mL (0-769)
[2021-03-06 23:06] LABS: MYCOPLASMA PNEUMONIA IgG 440 U/mL (0-99)
[2021-03-07] VITALS (27 sets, daily range): BP systolic 114–154; BP diastolic 62–85
[2021-03-07 03:13] LABS: ABSOLUTE LYMPHOCYTES 0.3 thou/uL (0.8-5.3); ABSOLUTE MONOCYTES 0.8 thou/uL (0.0-1.2); BASOPHILS 0.3 %; HEMOGLOBIN 10.2 gm/dL (12.0-15.0); LYMPHOCYTES 1.8 %; MCH 28.2 pg (26.0-34.0); MONOCYTES 5.2 %; NUCLEATED RBCS 0 /100WBC; POLYS 92.7 %; RBC 3.63 mil/uL (4.20-5.00); RDW-CV 15.5 % (10.5-14.5); WBC 15.2 thou/uL (4.0-11.0)
[2021-03-07 03:27] LABS: ALBUMIN 2.4 g/dL (3.4-5.0); CALCIUM 8.5 mg/dL (8.5-10.1); CREATININE 0.6 mg/dL (0.6-1.3); MAGNESIUM 2.1 mg/dL (1.8-2.4); POTASSIUM 3.3 mmol/L (3.5-5.1); TOTAL BILIRUBIN 0.5 mg/dL (<0.1-1.0); TOTAL PROTEIN 6.8 g/dL (6.4-8.2)
[2021-03-07 03:29] LABS: PLATELET COUNT* 385 thou/uL (150-400)
[2021-03-07 07:52] LABS: BE 0.3 mmol/L (-2 to +3); PCO2 35.6 mmHg (35.0-45.0); pH 7.448 (7.340-7.450)
[2021-03-07 07:54] LABS: PO2 57.2 mmHg (75.0-100.0)
[2021-03-07 12:33] LABS: CALCIUM 8.6 mg/dL (8.5-10.1); CREATININE 0.5 mg/dL (0.6-1.3); POTASSIUM 3.6 mmol/L (3.5-5.1)
[2021-03-08] VITALS (37 sets, daily range): BP systolic 76–142; BP diastolic 44–86
[2021-03-08 04:58] LABS: ABSOLUTE LYMPHOCYTES 0.3 thou/uL (0.8-5.3); ABSOLUTE MONOCYTES 0.5 thou/uL (0.0-1.2); ABSOLUTE NEUTROPHILS 10.1 thou/uL (1.6-8.1); BASOPHILS 0.1 %; HEMATOCRIT 29.1 % (37.0-47.0); HEMOGLOBIN 9.5 gm/dL (12.0-15.0); LYMPHOCYTES 2.9 %; MCH 28.9 pg (26.0-34.0); MCHC 32.7 g/dL (28.0-37.0); MCV 88.4 fL (80.0-100.0); MONOCYTES 4.6 %; MPV 7.1 fl. (7.2-11.1); NUCLEATED RBCS 0 /100WBC; POLYS 92.4 %; RDW-CV 16.1 % (10.5-14.5); WBC 10.9 thou/uL (4.0-11.0)
[2021-03-08 05:05] LABS: APTT 24.8 Seconds (25.0-31.3); INR 1.1; PLATELET COUNT* 302 thou/uL (150-400); PROTIME 11.5 Seconds (9.20-11.50)
[2021-03-08 05:08] LABS: ALBUMIN 2.2 g/dL (3.4-5.0); CALCIUM 8.4 mg/dL (8.5-10.1); CREATININE 0.5 mg/dL (0.6-1.3); MAGNESIUM 2.2 mg/dL (1.8-2.4); POTASSIUM 4.4 mmol/L (3.5-5.1); TOTAL BILIRUBIN 0.4 mg/dL (<0.1-1.0); TOTAL PROTEIN 6.1 g/dL (6.4-8.2)
[2021-03-08 05:09] LABS: PHOSPHORUS* 2.9 mg/dL (2.5-4.9)
[2021-03-08 08:29] LABS: BE 1.9 mmol/L (-2 to +3); PCO2 38.8 mmHg (35.0-45.0); PO2 68.7 mmHg (75.0-100.0); pH 7.444 (7.340-7.450)
[2021-03-08 17:22] LABS: CALCIUM 8.7 mg/dL (8.5-10.1); CREATININE 0.5 mg/dL (0.6-1.3); MAGNESIUM 2.3 mg/dL (1.8-2.4); POTASSIUM 3.9 mmol/L (3.5-5.1)
[2021-03-08 17:44] LABS: BE 4.1 mmol/L (-2 to +3); PCO2 45.7 mmHg (35.0-45.0); PO2 64.1 mmHg (75.0-100.0); pH 7.421 (7.340-7.450)
[2021-03-09] VITALS (27 sets, daily range): BP systolic 80–165; BP diastolic 39–78
[2021-03-09 05:47] LABS: ABSOLUTE LYMPHOCYTES 0.5 thou/uL (0.8-5.3); ABSOLUTE MONOCYTES 0.8 thou/uL (0.0-1.2); ABSOLUTE NEUTROPHILS 14.3 thou/uL (1.6-8.1); BASOPHILS 0.1 %; HEMATOCRIT 30.4 % (37.0-47.0); HEMOGLOBIN 9.4 gm/dL (12.0-15.0); LYMPHOCYTES 3.3 %; MCH 27.8 pg (26.0-34.0); MCHC 31.1 g/dL (28.0-37.0); MCV 89.5 fL (80.0-100.0); MONOCYTES 5.3 %; MPV 7.2 fl. (7.2-11.1); NUCLEATED RBCS 0 /100WBC; POLYS 91.3 %; RDW-CV 16.3 % (10.5-14.5); WBC 15.7 thou/uL (4.0-11.0)
[2021-03-09 05:49] LABS: PLATELET COUNT* 402 thou/uL (150-400)
[2021-03-09 05:54] LABS: ALBUMIN 2.4 g/dL (3.4-5.0); CALCIUM 8.8 mg/dL (8.5-10.1); CREATININE 0.4 mg/dL (0.6-1.3); MAGNESIUM 2.5 mg/dL (1.8-2.4); POTASSIUM 4.4 mmol/L (3.5-5.1); TOTAL BILIRUBIN 0.5 mg/dL (<0.1-1.0); TOTAL PROTEIN 6.4 g/dL (6.4-8.2)
[2021-03-09 06:10] LABS: PREALBUMIN 14.2 mg/dL (18.0-35.7)
[2021-03-09 08:19] LABS: BE 2.1 mmol/L (-2 to +3); PCO2 41.3 mmHg (35.0-45.0); PO2 74.4 mmHg (75.0-100.0); pH 7.428 (7.340-7.450)
[2021-03-10] VITALS (28 sets, daily range): BP systolic 103–132; BP diastolic 39–76
[2021-03-10 06:14] LABS: HEMATOCRIT 26.5 % (37.0-47.0); HEMOGLOBIN 8.5 gm/dL (12.0-15.0); MCH 28.3 pg (26.0-34.0); MCV 88.4 fL (80.0-100.0); MPV 7.5 fl. (7.2-11.1); NUCLEATED RBCS 0 /100WBC; RDW-CV 16.3 % (10.5-14.5); WBC 10.5 thou/uL (4.0-11.0)
[2021-03-10 06:17] LABS: PLATELET COUNT* 253 thou/uL (150-400)
[2021-03-10 06:33] LABS: PREALBUMIN 15.7 mg/dL (18.0-35.7)
[2021-03-10 06:35] LABS: ALBUMIN 2.5 g/dL (3.4-5.0); CALCIUM 8.4 mg/dL (8.5-10.1); CREATININE 0.4 mg/dL (0.6-1.3); MAGNESIUM 2.4 mg/dL (1.8-2.4); POTASSIUM 4.3 mmol/L (3.5-5.1); TOTAL BILIRUBIN 0.5 mg/dL (<0.1-1.0); TOTAL PROTEIN 5.9 g/dL (6.4-8.2)
[2021-03-10 07:50] LABS: ABSOLUTE LYMPHOCYTES 0.5 thou/uL (0.8-5.3); ABSOLUTE MONOCYTES 0.1 thou/uL (0.0-1.2); ABSOLUTE NEUTROPHILS 9.9 thou/uL (1.6-8.1); PLATELET ESTIMATE ADEQUATE
[2021-03-10 07:55] LABS: BE 3.1 mmol/L (-2 to +3); PCO2 44.2 mmHg (35.0-45.0); PO2 69.8 mmHg (75.0-100.0); pH 7.419 (7.340-7.450)
[2021-03-11] VITALS (24 sets, daily range): BP systolic 105–144; BP diastolic 41–98
[2021-03-11 04:27] LABS: HEMATOCRIT 25.7 % (37.0-47.0); HEMOGLOBIN 8.2 gm/dL (12.0-15.0); MCH 28.3 pg (26.0-34.0); MCHC 31.9 g/dL (28.0-37.0); MCV 88.6 fL (80.0-100.0); MPV 7.6 fl. (7.2-11.1); RBC 2.89 mil/uL (4.20-5.00); WBC 11.4 thou/uL (4.0-11.0)
[2021-03-11 04:37] LABS: ALBUMIN 2.3 g/dL (3.4-5.0); CALCIUM 8.3 mg/dL (8.5-10.1); CREATININE 0.5 mg/dL (0.6-1.3); MAGNESIUM 2.4 mg/dL (1.8-2.4); POTASSIUM 4.8 mmol/L (3.5-5.1); TOTAL BILIRUBIN 0.5 mg/dL (<0.1-1.0); TOTAL PROTEIN 5.6 g/dL (6.4-8.2)
[2021-03-12] VITALS (23 sets, daily range): BP systolic 103–134; BP diastolic 38–53
[2021-03-12 04:43] LABS: HEMATOCRIT 26.5 % (37.0-47.0); HEMOGLOBIN 8.5 gm/dL (12.0-15.0); MCH 28.5 pg (26.0-34.0); RBC 2.98 mil/uL (4.20-5.00); RDW-CV 15.6 % (10.5-14.5); WBC 13.8 thou/uL (4.0-11.0)
[2021-03-12 04:50] LABS: ALBUMIN 2.3 g/dL (3.4-5.0); CALCIUM 8.4 mg/dL (8.5-10.1); CREATININE 0.4 mg/dL (0.6-1.3); MAGNESIUM 2.2 mg/dL (1.8-2.4); POTASSIUM 4.4 mmol/L (3.5-5.1); TOTAL BILIRUBIN 0.4 mg/dL (<0.1-1.0); TOTAL PROTEIN 5.5 g/dL (6.4-8.2)
[2021-03-13] VITALS (25 sets, daily range): BP systolic 94–130; BP diastolic 33–58
[2021-03-13 05:14] LABS: ABSOLUTE LYMPHOCYTES 1.2 thou/uL (0.8-5.3); ABSOLUTE NEUTROPHILS 15.4 thou/uL (1.6-8.1); BASOPHILS 0.2 %; EOSINOPHILS 0.1 %; HEMATOCRIT 28.5 % (37.0-47.0); HEMOGLOBIN 9.1 gm/dL (12.0-15.0); MCHC 31.9 g/dL (28.0-37.0); MCV 87.7 fL (80.0-100.0); MONOCYTES 5.6 %; MPV 8.1 fl. (7.2-11.1); NUCLEATED RBCS 0 /100WBC; PLATELET COUNT* 308 thou/uL (150-400); POLYS 87.1 %; RBC 3.25 mil/uL (4.20-5.00); RDW-CV 15.2 % (10.5-14.5); WBC 17.7 thou/uL (4.0-11.0)
[2021-03-13 05:23] LABS: PHOSPHORUS* 3.2 mg/dL (2.5-4.9)
[2021-03-13 05:24] LABS: ALBUMIN 2.6 g/dL (3.4-5.0); CALCIUM 8.5 mg/dL (8.5-10.1); CREATININE 0.3 mg/dL (0.6-1.3); MAGNESIUM 2.2 mg/dL (1.8-2.4); TOTAL BILIRUBIN 0.4 mg/dL (<0.1-1.0); TOTAL PROTEIN 5.6 g/dL (6.4-8.2)
[2021-03-13 08:48] LABS: BE 6.5 mmol/L (-2 to +3); PCO2 42.6 mmHg (35.0-45.0); PO2 82.5 mmHg (75.0-100.0); pH 7.476 (7.340-7.450)
[2021-03-13 16:57] LABS: CALCIUM 8.6 mg/dL (8.5-10.1); CREATININE 0.3 mg/dL (0.6-1.3); MAGNESIUM 2.1 mg/dL (1.8-2.4); POTASSIUM 3.8 mmol/L (3.5-5.1)
[2021-03-14] VITALS (28 sets, daily range): BP systolic 81–166; BP diastolic 30–57
[2021-03-14 05:24] LABS: ABSOLUTE EOSINOPHILS 0.1 thou/uL (0.0-0.7); ABSOLUTE MONOCYTES 0.5 thou/uL (0.0-1.2); BASOPHILS 0.1 %; EOSINOPHILS 0.5 %; HEMATOCRIT 28.1 % (37.0-47.0); HEMOGLOBIN 9.4 gm/dL (12.0-15.0); LYMPHOCYTES 10.7 %; MCH 29.4 pg (26.0-34.0); MCHC 33.4 g/dL (28.0-37.0); MONOCYTES 5.1 %; NUCLEATED RBCS 0 /100WBC; POLYS 83.6 %; RBC 3.19 mil/uL (4.20-5.00); RDW-CV 15.3 % (10.5-14.5); WBC 9.5 thou/uL (4.0-11.0)
[2021-03-14 05:28] LABS: PLATELET COUNT* 225 thou/uL (150-400)
[2021-03-14 05:40] LABS: PREALBUMIN 29.3 mg/dL (18.0-35.7)
[2021-03-14 05:43] LABS: ALBUMIN 2.9 g/dL (3.4-5.0); CALCIUM 8.5 mg/dL (8.5-10.1); CREATININE 0.3 mg/dL (0.6-1.3); MAGNESIUM 2.2 mg/dL (1.8-2.4); POTASSIUM 4.4 mmol/L (3.5-5.1); TOTAL BILIRUBIN 0.4 mg/dL (<0.1-1.0); TOTAL PROTEIN 5.8 g/dL (6.4-8.2)
[2021-03-14 18:40] LABS: CALCIUM 8.6 mg/dL (8.5-10.1); CREATININE 0.3 mg/dL (0.6-1.3); MAGNESIUM 2.2 mg/dL (1.8-2.4); POTASSIUM 4.4 mmol/L (3.5-5.1)
[2021-03-15] VITALS (23 sets, daily range): BP systolic 91–146; BP diastolic 41–57
[2021-03-15 04:04] LABS: HEMATOCRIT 29.9 % (37.0-47.0); HEMOGLOBIN 9.9 gm/dL (12.0-15.0); MCH 28.8 pg (26.0-34.0); MCHC 33.1 g/dL (28.0-37.0); MCV 87.2 fL (80.0-100.0); MPV 7.9 fl. (7.2-11.1); NUCLEATED RBCS 0 /100WBC; PLATELET COUNT* 265 thou/uL (150-400); RBC 3.43 mil/uL (4.20-5.00); RDW-CV 15.2 % (10.5-14.5); WBC 12.4 thou/uL (4.0-11.0)
[2021-03-15 04:24] LABS: CALCIUM 8.4 mg/dL (8.5-10.1); CREATININE 0.3 mg/dL (0.6-1.3); PHOSPHORUS* 3.8 mg/dL (2.5-4.9); POTASSIUM 4.7 mmol/L (3.5-5.1); TOTAL BILIRUBIN 0.4 mg/dL (<0.1-1.0)
[2021-03-15 04:43] LABS: ALBUMIN 2.7 g/dL (3.4-5.0)
[2021-03-15 05:35] LABS: ABSOLUTE EOSINOPHILS 0.1 thou/uL (0.0-0.7); ABSOLUTE LYMPHOCYTES 1.6 thou/uL (0.8-5.3); ABSOLUTE MONOCYTES 0.6 thou/uL (0.0-1.2); PLATELET ESTIMATE ADEQUATE; TOXIC GRANULATION Occasional
[2021-03-15 17:41] LABS: CALCIUM 8.8 mg/dL (8.5-10.1); CREATININE 0.4 mg/dL (0.6-1.3); MAGNESIUM 2.1 mg/dL (1.8-2.4); POTASSIUM 4.3 mmol/L (3.5-5.1)
[2021-03-16] VITALS (21 sets, daily range): BP systolic 91–136; BP diastolic 36–102
[2021-03-16 04:27] LABS: ABSOLUTE BASOPHILS 0.1 thou/uL (0.0-0.2); ABSOLUTE EOSINOPHILS 0.1 thou/uL (0.0-0.7); ABSOLUTE LYMPHOCYTES 1.6 thou/uL (0.8-5.3); ABSOLUTE MONOCYTES 1.2 thou/uL (0.0-1.2); ABSOLUTE NEUTROPHILS 16.3 thou/uL (1.6-8.1); BASOPHILS 0.6 %; EOSINOPHILS 0.3 %; HEMATOCRIT 30.1 % (37.0-47.0); LYMPHOCYTES 8.3 %; MCH 28.8 pg (26.0-34.0); MCHC 33.1 g/dL (28.0-37.0); MONOCYTES 6.3 %; NUCLEATED RBCS 0 /100WBC; PLATELET COUNT* 334 thou/uL (150-400); POLYS 84.5 %; RBC 3.46 mil/uL (4.20-5.00); RDW-CV 15.6 % (10.5-14.5); WBC 19.3 thou/uL (4.0-11.0)
[2021-03-16 05:01] LABS: ALBUMIN 2.6 g/dL (3.4-5.0); CALCIUM 8.7 mg/dL (8.5-10.1); CREATININE 0.4 mg/dL (0.6-1.3); MAGNESIUM 2.1 mg/dL (1.8-2.4); PHOSPHORUS* 3.6 mg/dL (2.5-4.9); POTASSIUM 4.5 mmol/L (3.5-5.1); TOTAL BILIRUBIN 0.4 mg/dL (<0.1-1.0); TOTAL PROTEIN 6.1 g/dL (6.4-8.2)
[2021-03-16 11:35] LABS: BE 3.9 mmol/L (-2 to +3); PO2 79.4 mmHg (75.0-100.0); pH 7.447 (7.340-7.450)
[2021-03-17] VITALS (33 sets, daily range): BP systolic 93–133; BP diastolic 34–56
[2021-03-17 05:00] LABS: ABSOLUTE LYMPHOCYTES 1.5 thou/uL (0.8-5.3); ABSOLUTE MONOCYTES 1.4 thou/uL (0.0-1.2); ABSOLUTE NEUTROPHILS 16.7 thou/uL (1.6-8.1); BASOPHILS 0.1 %; EOSINOPHILS 0.2 %; HEMOGLOBIN 10.9 gm/dL (12.0-15.0); LYMPHOCYTES 7.7 %; MCH 28.5 pg (26.0-34.0); MCV 86.5 fL (80.0-100.0); MONOCYTES 7.3 %; MPV 7.8 fl. (7.2-11.1); NUCLEATED RBCS 0 /100WBC; PLATELET COUNT* 355 thou/uL (150-400); POLYS 84.7 %; RBC 3.82 mil/uL (4.20-5.00); RDW-CV 15.4 % (10.5-14.5); WBC 19.7 thou/uL (4.0-11.0)
[2021-03-17 05:06] LABS: CREATININE 0.4 mg/dL (0.6-1.3); POTASSIUM 4.3 mmol/L (3.5-5.1)
[2021-03-18] VITALS (41 sets, daily range): BP systolic 95–151; BP diastolic 38–56
[2021-03-18 05:06] LABS: ABSOLUTE LYMPHOCYTES 1.4 thou/uL (0.8-5.3); ABSOLUTE NEUTROPHILS 11.6 thou/uL (1.6-8.1); BASOPHILS 0.1 %; EOSINOPHILS 0.2 %; HEMATOCRIT 30.2 % (37.0-47.0); HEMOGLOBIN 10.1 gm/dL (12.0-15.0); LYMPHOCYTES 10.1 %; MCH 28.7 pg (26.0-34.0); MCHC 33.3 g/dL (28.0-37.0); MCV 86.3 fL (80.0-100.0); MONOCYTES 7.4 %; NUCLEATED RBCS 0 /100WBC; PLATELET COUNT* 303 thou/uL (150-400); POLYS 82.2 %; RDW-CV 15.6 % (10.5-14.5); WBC 14.1 thou/uL (4.0-11.0)
[2021-03-18 05:34] LABS: ALBUMIN 2.5 g/dL (3.4-5.0); CALCIUM 8.7 mg/dL (8.5-10.1); CREATININE 0.3 mg/dL (0.6-1.3); TOTAL BILIRUBIN 0.6 mg/dL (<0.1-1.0); TOTAL PROTEIN 6.2 g/dL (6.4-8.2)
[2021-03-18 21:18] LABS: URINE BILIRUBIN NEGATIVE (Negative); URINE BLOOD 3+ (Negative); URINE COLOR YELLOW; URINE GLUCOSE-RANDOM NEGATIVE (Negative); URINE KETONES 1+ (Negative); URINE LEUKOCYTES-REFLEX TRACE (Negative); URINE NITRITE-REFLEX NEGATIVE (Negative); URINE PROTEIN 1+ (Negative); URINE SPECIFIC GRAVITY >= 1.030 (1.005-1.030); URINE UROBILINOGEN 0.2 E.U./dl (0.2-1.0)
[2021-03-18 21:20] LABS: URINE CLARITY SL HAZY
[2021-03-18 21:35] LABS: BACTERIA-REFLEX >30 Many /HPF (None Seen); CASTS None Seen /LPF (None Seen); CRYSTALS None Seen /LPF (None Seen); MUCUS 4-6 Moderate strn/LPF (None Seen); SQUAMOUS 0-3 Few /LPF (0-3); URINE RBC >20 Many /HPF (0-2); WBC CLUMPS Few (None Seen); YEAST-REFLEX Present (None Seen)
[2021-03-19] VITALS (89 sets, daily range): BP systolic 87–155; BP diastolic 30–61
[2021-03-19 02:58] LABS: BE 0.3 mmol/L (-2 to +3); PCO2 33.9 mmHg (35.0-45.0); PO2 60.4 mmHg (75.0-100.0); pH 7.462 (7.340-7.450)
[2021-03-19 05:20] LABS: HEMATOCRIT 31.9 % (37.0-47.0); HEMOGLOBIN 10.3 gm/dL (12.0-15.0); MCH 28.1 pg (26.0-34.0); MCHC 32.4 g/dL (28.0-37.0); MCV 86.9 fL (80.0-100.0); MPV 8.1 fl. (7.2-11.1); NUCLEATED RBCS 0 /100WBC; PLATELET COUNT* 373 thou/uL (150-400); RBC 3.67 mil/uL (4.20-5.00); RDW-CV 15.4 % (10.5-14.5); WBC 26.1 thou/uL (4.0-11.0)
[2021-03-19 05:44] LABS: ALBUMIN 2.5 g/dL (3.4-5.0); CALCIUM 8.6 mg/dL (8.5-10.1); CREATININE 0.3 mg/dL (0.6-1.3); MAGNESIUM 1.9 mg/dL (1.8-2.4); PHOSPHORUS* 2.4 mg/dL (2.5-4.9); TOTAL BILIRUBIN 0.7 mg/dL (<0.1-1.0); TOTAL PROTEIN 6.4 g/dL (6.4-8.2)
[2021-03-19 05:45] LABS: POTASSIUM 2.8 mmol/L (3.5-5.1)
[2021-03-19 05:48] LABS: ABSOLUTE LYMPHOCYTES 1.8 thou/uL (0.8-5.3); ABSOLUTE MONOCYTES 0.5 thou/uL (0.0-1.2); ABSOLUTE NEUTROPHILS 23.8 thou/uL (1.6-8.1); ANISOCYTOSIS 1+; PLATELET ESTIMATE ADEQUATE; POIKILOCYTOSIS 1+
[2021-03-19 17:28] LABS: CREATININE 0.4 mg/dL (0.6-1.3)
[2021-03-19 17:29] LABS: POTASSIUM 5.1 mmol/L (3.5-5.1)
[2021-03-19 19:39] LABS: HEMATOCRIT 28.5 % (37.0-47.0); HEMOGLOBIN 9.4 gm/dL (12.0-15.0); MCH 28.9 pg (26.0-34.0); MCHC 32.9 g/dL (28.0-37.0); MCV 87.6 fL (80.0-100.0); MPV 8.4 fl. (7.2-11.1); RBC 3.25 mil/uL (4.20-5.00); RDW-CV 15.3 % (10.5-14.5); WBC 15.4 thou/uL (4.0-11.0)
[2021-03-19 22:04] LABS: CALCIUM 8.5 mg/dL (8.5-10.1); CREATININE 0.4 mg/dL (0.6-1.3); MAGNESIUM 2.4 mg/dL (1.8-2.4); POTASSIUM 4.6 mmol/L (3.5-5.1)
[2021-03-20] VITALS (14 sets, daily range): BP systolic 97–128; BP diastolic 41–53
[2021-03-20 05:15] LABS: ABSOLUTE LYMPHOCYTES 0.8 thou/uL (0.8-5.3); ABSOLUTE MONOCYTES 0.7 thou/uL (0.0-1.2); ABSOLUTE NEUTROPHILS 11.3 thou/uL (1.6-8.1); BASOPHILS 0.3 %; EOSINOPHILS 0.1 %; HEMATOCRIT 26.8 % (37.0-47.0); LYMPHOCYTES 6.5 %; MCH 28.7 pg (26.0-34.0); MCHC 33.4 g/dL (28.0-37.0); MONOCYTES 5.2 %; MPV 7.7 fl. (7.2-11.1); NUCLEATED RBCS 0 /100WBC; PLATELET COUNT* 248 thou/uL (150-400); POLYS 87.9 %; RBC 3.12 mil/uL (4.20-5.00); RDW-CV 15.6 % (10.5-14.5); WBC 12.8 thou/uL (4.0-11.0)
[2021-03-20 05:32] LABS: ALBUMIN 2.2 g/dL (3.4-5.0); CALCIUM 8.5 mg/dL (8.5-10.1); CREATININE 0.3 mg/dL (0.6-1.3); MAGNESIUM 2.1 mg/dL (1.8-2.4); PHOSPHORUS* 3.1 mg/dL (2.5-4.9); POTASSIUM 4.5 mmol/L (3.5-5.1); TOTAL BILIRUBIN 0.5 mg/dL (<0.1-1.0); TOTAL PROTEIN 6.1 g/dL (6.4-8.2)
[2021-03-20 08:07] LABS: pH 7.497 (7.340-7.450)
[2021-03-21] VITALS (21 sets, daily range): BP systolic 99–168; BP diastolic 53–77
[2021-03-21 06:06] LABS: CALCIUM 8.7 mg/dL (8.5-10.1); CREATININE 0.4 mg/dL (0.6-1.3); PHOSPHORUS* 4.4 mg/dL (2.5-4.9); POTASSIUM 4.2 mmol/L (3.5-5.1)
[2021-03-21 06:53] LABS: HEMATOCRIT 31.5 % (37.0-47.0); HEMOGLOBIN 10.2 gm/dL (12.0-15.0); MCH 28.5 pg (26.0-34.0); MCHC 32.6 g/dL (28.0-37.0); MCV 87.6 fL (80.0-100.0); MPV 8.5 fl. (7.2-11.1); NUCLEATED RBCS 0 /100WBC; RBC 3.59 mil/uL (4.20-5.00); RDW-CV 15.5 % (10.5-14.5)
[2021-03-21 06:54] LABS: PLATELET COUNT* 402 thou/uL (150-400)
[2021-03-21 07:34] LABS: ABSOLUTE EOSINOPHILS 0.6 thou/uL (0.0-0.7); ABSOLUTE MONOCYTES 0.6 thou/uL (0.0-1.2); ABSOLUTE NEUTROPHILS 24.9 thou/uL (1.6-8.1); PLATELET ESTIMATE ADEQUATE
[2021-03-21 08:52] LABS: PCO2 42.8 mmHg (35.0-45.0); PO2 93.8 mmHg (75.0-100.0); pH 7.357 (7.340-7.450)
[2021-03-21 13:10] LABS: LIPASE 367 U/L (73-393); TRIGLYCERIDE 109 mg/dL (<150)
--- NOTE | 2021-03-21 16:06 | 2DMMODE ---
[place] [address] 2 D/M-MODE ECHOCARDIOGRAM Name: ZEV BAIG Room: [address] ADM IN [place]#: [id number] Admission: 03/04/21 Attend Phys: Francis Muñiz, Discharge: Date of : 48 Date of Service: 03/21/21 1606 Report #: [id number] THIS REPORT FOR: cc: Jennifer Lopes MD, Katrina MD Blick,Angel Lacy MD [facility] ~ APPROVED REPORT Study performed: 03/21/2021 14:55:55 EXAM: Limited 2D, Doppler, and color-flow Echocardiogram Patient Location: In-Patient Room #: 004 Status: routine BSA: 1.71 HR: 64 bpm BP: 119/62 mmHg Rhythm: NSR Other Information Study Quality: Good Indications Reassess PA systolic Tricuspid Valve RAP Estimate: 5.00 mmHg TR Peak Gr.: 28.40 mmHg RVSP: 33.00 mmHg PA Pressure: 33.00 mmHg Left Ventricle The left ventricle is normal size. There is normal LV segmental wall motion. There is normal left ventricular wall thickness. The left ventricular systolic function is normal. The left ventricular ejection fraction is within the normal range. LVEF is 60-65%. Right Ventricle The right ventricle is normal size. The right ventricular systolic function is normal. Atria The left atrium size is normal. The right atrium size is normal[place] [address] 2 D/M-MODE ECHOCARDIOGRAM Name: ZEV BAIG Room: [address] IN M.R.#: [id number] Admission: 03/04/21 Attend Phys: Francis Muñiz, Discharge: Date of : 48 Date of Service: 03/21/21 1606 Report #: [id number] Mild aortic valve sclerosis. No aortic regurgitation is present. There is no aortic valvular stenosis. Mitral Valve The mitral valve is normal in structure. There is no mitral valve regurgitation noted. No evidence of mitral valve stenosis. Tricuspid Valve The tricuspid valve is normal in structure. Trace tricuspid regurgitation. estimated pa pressure 35 mm hg Pulmonic Valve The pulmonary valve is normal in structure. Trace pulmonic regurgitation. Great Vessels The aortic root is normal in size. IVC is normal in size and collapses >50% with inspiration. Pericardium There is no pericardial effusion. <Conclusion> LVEF is 60-65%. Trace tricuspid regurgitation. estimated pa pressure 35 mm hg <ELECTRONICALLY SIGNED> By: Angel Lyman MD, [facility] 03/21/21 1606 1606 1606 Angel Lyman MD, FACC /INF
[2021-03-21 17:20] LABS: APTT 22.8 Seconds (25.0-31.3); INR 1.1; PROTIME 11.3 Seconds (9.20-11.50)
[2021-03-22] VITALS (43 sets, daily range): BP systolic 115–177; BP diastolic 42–85
[2021-03-22 05:47] LABS: HEMATOCRIT 27.7 % (37.0-47.0); HEMOGLOBIN 9.2 gm/dL (12.0-15.0); MCH 28.8 pg (26.0-34.0); MCHC 33.2 g/dL (28.0-37.0); MCV 86.7 fL (80.0-100.0); MPV 7.6 fl. (7.2-11.1); RBC 3.19 mil/uL (4.20-5.00); RDW-CV 15.1 % (10.5-14.5); WBC 28.6 thou/uL (4.0-11.0)
[2021-03-22 06:05] LABS: ALBUMIN 2.1 g/dL (3.4-5.0); CALCIUM 8.7 mg/dL (8.5-10.1); CREATININE 0.3 mg/dL (0.6-1.3); MAGNESIUM 2.2 mg/dL (1.8-2.4); PHOSPHORUS* 3.4 mg/dL (2.5-4.9); TOTAL BILIRUBIN 0.3 mg/dL (<0.1-1.0); TOTAL PROTEIN 6.2 g/dL (6.4-8.2)
[2021-03-22 07:59] LABS: BE -1.5 mmol/L (-2 to +3); PCO2 48.2 mmHg (35.0-45.0); pH 7.327 (7.340-7.450)
[2021-03-22 08:00] LABS: PO2 148.4 mmHg (75.0-100.0)
[2021-03-22 17:28] LABS: BE 0.6 mmol/L (-2 to +3); PCO2 45.4 mmHg (35.0-45.0); PO2 90.1 mmHg (75.0-100.0); pH 7.375 (7.340-7.450)
[2021-03-23] VITALS (52 sets, daily range): BP systolic 98–168; BP diastolic 29–59
[2021-03-23 05:09] LABS: BASOPHILS 0.1 %; EOSINOPHILS 0.1 %; HEMATOCRIT 23.4 % (37.0-47.0); HEMOGLOBIN 7.8 gm/dL (12.0-15.0); LYMPHOCYTES 7.1 %; MCHC 33.4 g/dL (28.0-37.0); MCV 86.9 fL (80.0-100.0); MONOCYTES 1.9 %; MPV 7.6 fl. (7.2-11.1); NUCLEATED RBCS 0 /100WBC; POLYS 90.8 %; RDW-CV 15.3 % (10.5-14.5)
[2021-03-23 05:16] LABS: ABSOLUTE LYMPHOCYTES 0.5 thou/uL (0.8-5.3); ABSOLUTE MONOCYTES 0.1 thou/uL (0.0-1.2); ABSOLUTE NEUTROPHILS 6.9 thou/uL (1.6-8.1); PLATELET COUNT* 174 thou/uL (150-400); WBC 7.6 thou/uL (4.0-11.0)
[2021-03-23 05:22] LABS: PHOSPHORUS* 2.9 mg/dL (2.5-4.9)
[2021-03-23 05:33] LABS: ALBUMIN 2.4 g/dL (3.4-5.0); CALCIUM 8.5 mg/dL (8.5-10.1); CREATININE 0.2 mg/dL (0.6-1.3); POTASSIUM 3.7 mmol/L (3.5-5.1); TOTAL BILIRUBIN 0.3 mg/dL (<0.1-1.0); TOTAL PROTEIN 5.8 g/dL (6.4-8.2)
[2021-03-23 07:34] LABS: BE 2.4 mmol/L (-2 to +3); PCO2 47.1 mmHg (35.0-45.0); pH 7.388 (7.340-7.450)
[2021-03-24] VITALS (26 sets, daily range): BP systolic 96–162; BP diastolic 37–62
[2021-03-24 06:12] LABS: ABSOLUTE LYMPHOCYTES 0.5 thou/uL (0.8-5.3); ABSOLUTE MONOCYTES 0.2 thou/uL (0.0-1.2); ABSOLUTE NEUTROPHILS 9.4 thou/uL (1.6-8.1); BASOPHILS 0.1 %; HEMATOCRIT 23.1 % (37.0-47.0); HEMOGLOBIN 7.7 gm/dL (12.0-15.0); LYMPHOCYTES 4.7 %; MCH 29.3 pg (26.0-34.0); MCHC 33.5 g/dL (28.0-37.0); MCV 87.5 fL (80.0-100.0); MONOCYTES 2.4 %; MPV 7.7 fl. (7.2-11.1); NUCLEATED RBCS 0 /100WBC; PLATELET COUNT* 181 thou/uL (150-400); POLYS 92.8 %; RBC 2.64 mil/uL (4.20-5.00); RDW-CV 15.7 % (10.5-14.5); WBC 10.2 thou/uL (4.0-11.0)
[2021-03-24 06:23] LABS: PHOSPHORUS* 2.8 mg/dL (2.5-4.9)
[2021-03-24 06:25] LABS: ALBUMIN 2.8 g/dL (3.4-5.0); CALCIUM 8.6 mg/dL (8.5-10.1); CREATININE 0.3 mg/dL (0.6-1.3); POTASSIUM 4.2 mmol/L (3.5-5.1); TOTAL BILIRUBIN 0.4 mg/dL (<0.1-1.0)
[2021-03-24 07:27] LABS: BE 5.2 mmol/L (-2 to +3); PCO2 42.8 mmHg (35.0-45.0); PO2 89.6 mmHg (75.0-100.0); pH 7.457 (7.340-7.450)
[2021-03-25] VITALS (49 sets, daily range): BP systolic 123–183; BP diastolic 47–77
[2021-03-25 05:26] LABS: HEMATOCRIT 22.4 % (37.0-47.0); HEMOGLOBIN 7.5 gm/dL (12.0-15.0); MCH 29.1 pg (26.0-34.0); MCHC 33.4 g/dL (28.0-37.0); MCV 87.2 fL (80.0-100.0); MPV 7.9 fl. (7.2-11.1); NUCLEATED RBCS 0 /100WBC; PLATELET COUNT* 156 thou/uL (150-400); RBC 2.57 mil/uL (4.20-5.00); RDW-CV 15.8 % (10.5-14.5); WBC 10.4 thou/uL (4.0-11.0)
[2021-03-25 05:43] LABS: ALBUMIN 2.5 g/dL (3.4-5.0); CALCIUM 8.4 mg/dL (8.5-10.1); CREATININE 0.3 mg/dL (0.6-1.3); MAGNESIUM 1.9 mg/dL (1.8-2.4); POTASSIUM 4.4 mmol/L (3.5-5.1); TOTAL BILIRUBIN 0.4 mg/dL (<0.1-1.0); TOTAL PROTEIN 5.5 g/dL (6.4-8.2)
[2021-03-25 06:23] LABS: BE 7.2 mmol/L (-2 to +3); PCO2 44.9 mmHg (35.0-45.0); pH 7.466 (7.340-7.450)
[2021-03-25 07:38] LABS: ABSOLUTE LYMPHOCYTES 0.7 thou/uL (0.8-5.3); ABSOLUTE MONOCYTES 0.2 thou/uL (0.0-1.2); ABSOLUTE NEUTROPHILS 9.5 thou/uL (1.6-8.1); PLATELET ESTIMATE ADEQUATE
[2021-03-26] VITALS (54 sets, daily range): BP systolic 88–237; BP diastolic 37–119
[2021-03-26 04:23] LABS: HEMATOCRIT 23.9 % (37.0-47.0); MCH 29.3 pg (26.0-34.0); MCHC 33.6 g/dL (28.0-37.0); MCV 87.1 fL (80.0-100.0); MPV 7.2 fl. (7.2-11.1); RBC 2.74 mil/uL (4.20-5.00); RDW-CV 15.5 % (10.5-14.5); WBC 9.9 thou/uL (4.0-11.0)
[2021-03-26 04:46] LABS: CALCIUM 8.1 mg/dL (8.5-10.1); CREATININE 0.2 mg/dL (0.6-1.3); POTASSIUM 4.1 mmol/L (3.5-5.1)
[2021-03-27] VITALS (35 sets, daily range): BP systolic 100–161; BP diastolic 40–64
[2021-03-27 05:01] LABS: ABSOLUTE LYMPHOCYTES 0.7 thou/uL (0.8-5.3); ABSOLUTE MONOCYTES 0.2 thou/uL (0.0-1.2); ABSOLUTE NEUTROPHILS 5.4 thou/uL (1.6-8.1); BASOPHILS 0.2 %; EOSINOPHILS 0.2 %; HEMOGLOBIN 8.1 gm/dL (12.0-15.0); LYMPHOCYTES 11.3 %; MCH 29.3 pg (26.0-34.0); MCHC 33.6 g/dL (28.0-37.0); MCV 87.3 fL (80.0-100.0); MONOCYTES 3.6 %; MPV 7.5 fl. (7.2-11.1); NUCLEATED RBCS 0 /100WBC; PLATELET COUNT* 125 thou/uL (150-400); POLYS 84.7 %; RBC 2.75 mil/uL (4.20-5.00); WBC 6.3 thou/uL (4.0-11.0)
[2021-03-27 05:19] LABS: ALBUMIN 2.3 g/dL (3.4-5.0); CALCIUM 8.3 mg/dL (8.5-10.1); CREATININE 0.3 mg/dL (0.6-1.3); MAGNESIUM 2.1 mg/dL (1.8-2.4); POTASSIUM 4.2 mmol/L (3.5-5.1); TOTAL BILIRUBIN 0.2 mg/dL (<0.1-1.0); TOTAL PROTEIN 5.7 g/dL (6.4-8.2)
[2021-03-27 08:25] LABS: BE 8.7 mmol/L (-2 to +3); PCO2 44.7 mmHg (35.0-45.0); PO2 80.6 mmHg (75.0-100.0); pH 7.486 (7.340-7.450)
[2021-03-27 12:57] LABS: BE 8.3 mmol/L (-2 to +3); PCO2 39.4 mmHg (35.0-45.0); PO2 65.7 mmHg (75.0-100.0); pH 7.524 (7.340-7.450)
[2021-03-28] VITALS (34 sets, daily range): BP systolic 113–164; BP diastolic 50–74
[2021-03-28 05:40] LABS: ABSOLUTE EOSINOPHILS 0.1 thou/uL (0.0-0.7); ABSOLUTE MONOCYTES 0.4 thou/uL (0.0-1.2); ABSOLUTE NEUTROPHILS 6.3 thou/uL (1.6-8.1); BASOPHILS 0.2 %; EOSINOPHILS 0.8 %; HEMATOCRIT 25.8 % (37.0-47.0); HEMOGLOBIN 8.6 gm/dL (12.0-15.0); LYMPHOCYTES 12.7 %; MCH 29.2 pg (26.0-34.0); MCHC 33.3 g/dL (28.0-37.0); MCV 87.7 fL (80.0-100.0); MONOCYTES 5.6 %; MPV 8.3 fl. (7.2-11.1); NUCLEATED RBCS 0 /100WBC; PLATELET COUNT* 165 thou/uL (150-400); POLYS 80.7 %; RBC 2.95 mil/uL (4.20-5.00); RDW-CV 16.1 % (10.5-14.5); WBC 7.8 thou/uL (4.0-11.0)
[2021-03-28 05:57] LABS: LIPASE 168 U/L (73-393); TRIGLYCERIDE 105 mg/dL (<150)
[2021-03-28 06:09] LABS: ALBUMIN 2.4 g/dL (3.4-5.0); CALCIUM 8.3 mg/dL (8.5-10.1); CREATININE 0.2 mg/dL (0.6-1.3); POTASSIUM 4.1 mmol/L (3.5-5.1); TOTAL BILIRUBIN 0.3 mg/dL (<0.1-1.0); TOTAL PROTEIN 5.9 g/dL (6.4-8.2)
[2021-03-28 12:40] LABS: BE 7.4 mmol/L (-2 to +3); PCO2 40.8 mmHg (35.0-45.0); PO2 85.1 mmHg (75.0-100.0); pH 7.501 (7.340-7.450)
[2021-03-29] VITALS (35 sets, daily range): BP systolic 94–169; BP diastolic 34–63
[2021-03-29 05:39] LABS: ABSOLUTE LYMPHOCYTES 1.5 thou/uL (0.8-5.3); EOSINOPHILS 0.5 %; HEMOGLOBIN 9.6 gm/dL (12.0-15.0); MPV 8.2 fl. (7.2-11.1); NUCLEATED RBCS 0 /100WBC
[2021-03-29 05:50] LABS: ABSOLUTE MONOCYTES 0.7 thou/uL (0.0-1.2); ABSOLUTE NEUTROPHILS 7.7 thou/uL (1.6-8.1); BASOPHILS 0.2 %; HEMATOCRIT 28.4 % (37.0-47.0); MCH 29.4 pg (26.0-34.0); MCHC 33.7 g/dL (28.0-37.0); MCV 87.2 fL (80.0-100.0); MONOCYTES 7.3 %; PLATELET COUNT* 187 thou/uL (150-400); RBC 3.26 mil/uL (4.20-5.00); RDW-CV 16.4 % (10.5-14.5); WBC 9.9 thou/uL (4.0-11.0)
[2021-03-29 05:53] LABS: CALCIUM 8.5 mg/dL (8.5-10.1); CREATININE 0.2 mg/dL (0.6-1.3); MAGNESIUM 2.1 mg/dL (1.8-2.4); POTASSIUM 3.8 mmol/L (3.5-5.1)
[2021-03-30] VITALS (27 sets, daily range): BP systolic 95–168; BP diastolic 49–76
[2021-03-30 03:52] LABS: HEMATOCRIT 29.5 % (37.0-47.0); MCH 29.4 pg (26.0-34.0); MCHC 33.9 g/dL (28.0-37.0); MPV 7.7 fl. (7.2-11.1); NUCLEATED RBCS 0 /100WBC; PLATELET COUNT* 202 thou/uL (150-400); RBC 3.39 mil/uL (4.20-5.00); RDW-CV 16.4 % (10.5-14.5)
[2021-03-30 04:19] LABS: ALBUMIN 2.6 g/dL (3.4-5.0); CALCIUM 8.8 mg/dL (8.5-10.1); CREATININE 0.3 mg/dL (0.6-1.3); MAGNESIUM 2.1 mg/dL (1.8-2.4); POTASSIUM 4.4 mmol/L (3.5-5.1); TOTAL BILIRUBIN 0.3 mg/dL (<0.1-1.0); TOTAL PROTEIN 6.4 g/dL (6.4-8.2)
[2021-03-30 06:15] LABS: ABSOLUTE EOSINOPHILS 0.2 thou/uL (0.0-0.7); ABSOLUTE LYMPHOCYTES 0.7 thou/uL (0.8-5.3); ABSOLUTE MONOCYTES 0.3 thou/uL (0.0-1.2); ABSOLUTE NEUTROPHILS 7.8 thou/uL (1.6-8.1); PLATELET ESTIMATE ADEQUATE; TOXIC GRANULATION 1+
[2021-03-30 06:16] LABS: ANISOCYTOSIS 1+
[2021-03-30 11:17] LABS: BE 0.4 mmol/L (-2 to +3); PCO2 29.7 mmHg (35.0-45.0); PO2 60.9 mmHg (75.0-100.0); pH 7.504 (7.340-7.450)
[2021-03-31] VITALS (23 sets, daily range): BP systolic 93–130; BP diastolic 47–74
[2021-04-01] VITALS (22 sets, daily range): BP systolic 84–116; BP diastolic 46–75
[2021-04-01 03:59] LABS: HEMATOCRIT 30.4 % (37.0-47.0); HEMOGLOBIN 10.3 gm/dL (12.0-15.0); MCH 29.6 pg (26.0-34.0); MCHC 33.9 g/dL (28.0-37.0); MCV 87.3 fL (80.0-100.0); MPV 7.8 fl. (7.2-11.1); RBC 3.48 mil/uL (4.20-5.00); RDW-CV 16.8 % (10.5-14.5); WBC 10.5 thou/uL (4.0-11.0)
[2021-04-01 04:16] LABS: CALCIUM 8.4 mg/dL (8.5-10.1); CREATININE 0.3 mg/dL (0.6-1.3)
[2021-04-02] VITALS (14 sets, daily range): BP systolic 95–124; BP diastolic 57–71
[2021-04-02 05:20] LABS: HEMOGLOBIN 9.9 gm/dL (12.0-15.0); MCH 29.3 pg (26.0-34.0); MCHC 33.1 g/dL (28.0-37.0); MCV 88.5 fL (80.0-100.0); MPV 7.7 fl. (7.2-11.1); RBC 3.39 mil/uL (4.20-5.00); WBC 9.3 thou/uL (4.0-11.0)
[2021-04-02 05:25] LABS: CALCIUM 8.4 mg/dL (8.5-10.1); CREATININE 0.2 mg/dL (0.6-1.3); POTASSIUM 3.4 mmol/L (3.5-5.1)
[2021-04-03 00:39] VITALS: BP 120/76
[2021-04-03 04:00] VITALS: BP 111/72
[2021-04-03 05:03] LABS: HEMATOCRIT 31.4 % (37.0-47.0); HEMOGLOBIN 10.6 gm/dL (12.0-15.0); MCH 29.7 pg (26.0-34.0); MCHC 33.8 g/dL (28.0-37.0); MCV 87.7 fL (80.0-100.0); MPV 7.6 fl. (7.2-11.1); RBC 3.59 mil/uL (4.20-5.00); RDW-CV 16.9 % (10.5-14.5); WBC 10.6 thou/uL (4.0-11.0)
[2021-04-03 05:12] LABS: CALCIUM 9.2 mg/dL (8.5-10.1); CREATININE 0.3 mg/dL (0.6-1.3); POTASSIUM 4.2 mmol/L (3.5-5.1)
[2021-04-03 08:00] VITALS: BP 110/68
[2021-04-03 12:00] VITALS: BP 116/65
[2021-04-03 16:00] VITALS: BP 105/73
[2021-04-03 20:00] VITALS: BP 112/73
[2021-04-04] VITALS: BP 104/62
[2021-04-04 04:00] VITALS: BP 128/71
[2021-04-04 08:00] VITALS: BP 96/66
[2021-04-04 12:00] VITALS: BP 98/61
[2021-04-04 13:01] LABS: HEMATOCRIT 29.7 % (37.0-47.0); HEMOGLOBIN 10.1 gm/dL (12.0-15.0); MCH 29.7 pg (26.0-34.0); MCHC 34.1 g/dL (28.0-37.0); MCV 86.9 fL (80.0-100.0); MPV 7.6 fl. (7.2-11.1); NUCLEATED RBCS 0 /100WBC; PLATELET COUNT* 180 thou/uL (150-400); RBC 3.41 mil/uL (4.20-5.00); RDW-CV 16.6 % (10.5-14.5); WBC 8.3 thou/uL (4.0-11.0)
[2021-04-04 13:08] LABS: CALCIUM 8.2 mg/dL (8.5-10.1); CREATININE 0.2 mg/dL (0.6-1.3); MAGNESIUM 1.7 mg/dL (1.8-2.4); POTASSIUM 3.8 mmol/L (3.5-5.1)
[2021-04-04 13:18] LABS: ABSOLUTE EOSINOPHILS 0.1 thou/uL (0.0-0.7); ABSOLUTE LYMPHOCYTES 0.6 thou/uL (0.8-5.3); ABSOLUTE NEUTROPHILS 7.6 thou/uL (1.6-8.1); METAMYELOCYTES 2 %; PLATELET ESTIMATE ADEQUATE
[2021-04-04 19:40] VITALS: BP 137/64
[2021-04-05] VITALS: BP 113/58
[2021-04-05 04:00] VITALS: BP 106/60
[2021-04-05 07:48] LABS: ABSOLUTE EOSINOPHILS 0.1 thou/uL (0.0-0.7); ABSOLUTE LYMPHOCYTES 1.2 thou/uL (0.8-5.3); ABSOLUTE MONOCYTES 0.5 thou/uL (0.0-1.2); ABSOLUTE NEUTROPHILS 6.4 thou/uL (1.6-8.1); BASOPHILS 0.2 %; EOSINOPHILS 1.7 %; HEMATOCRIT 29.6 % (37.0-47.0); LYMPHOCYTES 14.8 %; MCH 29.6 pg (26.0-34.0); MCHC 33.6 g/dL (28.0-37.0); MCV 87.9 fL (80.0-100.0); MONOCYTES 5.9 %; MPV 8.2 fl. (7.2-11.1); NUCLEATED RBCS 0 /100WBC; PLATELET COUNT* 190 thou/uL (150-400); POLYS 77.4 %; RBC 3.37 mil/uL (4.20-5.00); RDW-CV 16.7 % (10.5-14.5); WBC 8.3 thou/uL (4.0-11.0)
[2021-04-05 07:51] LABS: CALCIUM 8.5 mg/dL (8.5-10.1); CREATININE 0.2 mg/dL (0.6-1.3); POTASSIUM 3.3 mmol/L (3.5-5.1)
[2021-04-05 08:00] VITALS: BP 137/77
[2021-04-05 11:05] LABS: BE 2.6 mmol/L (-2 to +3); PCO2 38.1 mmHg (35.0-45.0); pH 7.459 (7.340-7.450)
[2021-04-05 11:07] LABS: PO2 57.2 mmHg (75.0-100.0)
[2021-04-05 12:00] VITALS: BP 106/62
[2021-04-05 16:00] VITALS: BP 114/69
[2021-04-05 20:30] VITALS: BP 116/65
[2021-04-06] VITALS: BP 103/76
[2021-04-06 04:00] VITALS: BP 115/69
[2021-04-06 05:18] LABS: ABSOLUTE LYMPHOCYTES 0.5 thou/uL (0.8-5.3); ABSOLUTE MONOCYTES 0.1 thou/uL (0.0-1.2); ABSOLUTE NEUTROPHILS 6.1 thou/uL (1.6-8.1); BASOPHILS 0.1 %; EOSINOPHILS 0.1 %; HEMOGLOBIN 10.1 gm/dL (12.0-15.0); MCH 29.6 pg (26.0-34.0); MCHC 33.8 g/dL (28.0-37.0); MCV 87.7 fL (80.0-100.0); MONOCYTES 1.6 %; MPV 7.9 fl. (7.2-11.1); NUCLEATED RBCS 0 /100WBC; PLATELET COUNT* 200 thou/uL (150-400); POLYS 90.2 %; RBC 3.41 mil/uL (4.20-5.00); WBC 6.7 thou/uL (4.0-11.0)
[2021-04-06 05:25] LABS: CREATININE 0.3 mg/dL (0.6-1.3); MAGNESIUM 2.1 mg/dL (1.8-2.4); POTASSIUM 4.2 mmol/L (3.5-5.1)
[2021-04-06 08:41] VITALS: BP 121/74
[2021-04-06 12:00] VITALS: BP 103/63
[2021-04-06 15:34] LABS: CALCIUM 9.1 mg/dL (8.5-10.1); CREATININE 0.3 mg/dL (0.6-1.3); POTASSIUM 3.5 mmol/L (3.5-5.1)
[2021-04-06 16:00] VITALS: BP 102/73
[2021-04-06 20:15] VITALS: BP 112/72
[2021-04-07] VITALS: BP 129/72
[2021-04-07 04:00] VITALS: BP 112/71
[2021-04-07 05:39] LABS: CALCIUM 8.7 mg/dL (8.5-10.1); CREATININE 0.2 mg/dL (0.6-1.3); MAGNESIUM 1.8 mg/dL (1.8-2.4); POTASSIUM 4.3 mmol/L (3.5-5.1)
[2021-04-07 08:30] VITALS: BP 115/74
[2021-04-07 14:11] VITALS: BP 111/60
[2021-04-07 19:30] VITALS: BP 111/72
[2021-04-07 20:00] VITALS: BP 95/59
[2021-04-08] VITALS: BP 157/73
[2021-04-08 06:15] LABS: ABSOLUTE MONOCYTES 0.5 thou/uL (0.0-1.2); ABSOLUTE NEUTROPHILS 7.1 thou/uL (1.6-8.1); BASOPHILS 0.2 %; HEMATOCRIT 30.6 % (37.0-47.0); HEMOGLOBIN 10.4 gm/dL (12.0-15.0); LYMPHOCYTES 11.8 %; MCH 29.3 pg (26.0-34.0); MCHC 33.9 g/dL (28.0-37.0); MCV 86.5 fL (80.0-100.0); NUCLEATED RBCS 0 /100WBC; PLATELET COUNT* 243 thou/uL (150-400); RBC 3.54 mil/uL (4.20-5.00); RDW-CV 16.6 % (10.5-14.5); WBC 8.7 thou/uL (4.0-11.0)
[2021-04-08 06:20] LABS: CALCIUM 9.1 mg/dL (8.5-10.1); CREATININE 0.3 mg/dL (0.6-1.3); POTASSIUM 3.7 mmol/L (3.5-5.1)
[2021-04-08 08:00] VITALS: BP 97/62
[2021-04-08 13:53] VITALS: BP 115/64
[2021-04-08 16:00] VITALS: BP 105/60
[2021-04-08 20:00] VITALS: BP 97/65
[2021-04-09] VITALS: BP 106/65
[2021-04-09 04:00] VITALS: BP 103/60
[2021-04-09 05:15] LABS: ABSOLUTE LYMPHOCYTES 0.7 thou/uL (0.8-5.3); ABSOLUTE MONOCYTES 0.3 thou/uL (0.0-1.2); ABSOLUTE NEUTROPHILS 4.2 thou/uL (1.6-8.1); BASOPHILS 0.1 %; EOSINOPHILS 0.1 %; HEMATOCRIT 30.6 % (37.0-47.0); HEMOGLOBIN 10.4 gm/dL (12.0-15.0); LYMPHOCYTES 13.6 %; MCH 29.5 pg (26.0-34.0); MCHC 33.9 g/dL (28.0-37.0); MCV 87.2 fL (80.0-100.0); MONOCYTES 5.2 %; NUCLEATED RBCS 0 /100WBC; PLATELET COUNT* 180 thou/uL (150-400); RBC 3.51 mil/uL (4.20-5.00); RDW-CV 16.4 % (10.5-14.5); WBC 5.2 thou/uL (4.0-11.0)
[2021-04-09 05:38] LABS: CALCIUM 8.6 mg/dL (8.5-10.1); CREATININE 0.3 mg/dL (0.6-1.3); MAGNESIUM 2.1 mg/dL (1.8-2.4); POTASSIUM 4.6 mmol/L (3.5-5.1)
[2021-04-09 08:47] VITALS: BP 106/65
[2021-04-09 12:00] VITALS: BP 105/60
[2021-04-09 16:00] VITALS: BP 109/65
[2021-04-09 20:00] VITALS: BP 102/62
[2021-04-10] VITALS: BP 116/70
[2021-04-10 04:00] VITALS: BP 102/61
[2021-04-10 04:56] LABS: CALCIUM 8.9 mg/dL (8.5-10.1); CREATININE 0.3 mg/dL (0.6-1.3); MAGNESIUM 1.8 mg/dL (1.8-2.4); POTASSIUM 3.6 mmol/L (3.5-5.1)
[2021-04-10 09:23] VITALS: BP 104/69
[2021-04-10 12:00] VITALS: BP 97/65
[2021-04-10 16:00] VITALS: BP 97/72
[2021-04-10 20:00] VITALS: BP 97/63
[2021-04-11] VITALS: BP 120/66
[2021-04-11 04:06] VITALS: BP 109/69
[2021-04-11 04:59] LABS: ABSOLUTE EOSINOPHILS 0.1 thou/uL (0.0-0.7); ABSOLUTE LYMPHOCYTES 2.6 thou/uL (0.8-5.3); ABSOLUTE MONOCYTES 0.5 thou/uL (0.0-1.2); ABSOLUTE NEUTROPHILS 6.1 thou/uL (1.6-8.1); BASOPHILS 0.3 %; EOSINOPHILS 1.2 %; HEMATOCRIT 33.1 % (37.0-47.0); HEMOGLOBIN 11.3 gm/dL (12.0-15.0); LYMPHOCYTES 27.7 %; MCHC 34.2 g/dL (28.0-37.0); MCV 87.6 fL (80.0-100.0); MONOCYTES 5.4 %; MPV 7.9 fl. (7.2-11.1); NUCLEATED RBCS 0 /100WBC; PLATELET COUNT* 191 thou/uL (150-400); POLYS 65.4 %; RBC 3.78 mil/uL (4.20-5.00); WBC 9.3 thou/uL (4.0-11.0)
[2021-04-11 05:04] LABS: CALCIUM 8.5 mg/dL (8.5-10.1); CREATININE 0.2 mg/dL (0.6-1.3); MAGNESIUM 1.9 mg/dL (1.8-2.4); POTASSIUM 4.1 mmol/L (3.5-5.1)
[2021-04-11 07:44] VITALS: BP 95/59
[2021-04-11 12:11] VITALS: BP 104/65
[2021-04-11 16:14] VITALS: BP 101/65
[2021-04-11 20:00] VITALS: BP 101/59
[2021-04-12] VITALS: BP 109/72
[2021-04-12 04:00] VITALS: BP 102/66
[2021-04-12 04:14] LABS: HEMATOCRIT 34.1 % (37.0-47.0); HEMOGLOBIN 11.7 gm/dL (12.0-15.0); MCH 29.8 pg (26.0-34.0); MCHC 34.3 g/dL (28.0-37.0); MCV 86.9 fL (80.0-100.0); MPV 7.7 fl. (7.2-11.1); NUCLEATED RBCS 0 /100WBC; PLATELET COUNT* 191 thou/uL (150-400); RBC 3.92 mil/uL (4.20-5.00); RDW-CV 16.7 % (10.5-14.5); WBC 11.3 thou/uL (4.0-11.0)
[2021-04-12 04:30] LABS: ANION GAP < 0 mmol/L (7-16); BUN 17 mg/dL (7-18); CALCIUM 8.7 mg/dL (8.5-10.1); CHLORIDE 95 mmol/L (98-107); CO2 35 mmol/L (21-32); CREATININE 0.3 mg/dL (0.6-1.3); GLUCOSE 73 mg/dL (70-99); POTASSIUM 3.7 mmol/L (3.5-5.1)
[2021-04-12 05:10] LABS: SODIUM 123 mmol/L (136-145)
[2021-04-12 05:58] LABS: ABSOLUTE EOSINOPHILS 0.3 thou/uL (0.0-0.7); ABSOLUTE LYMPHOCYTES 3.1 thou/uL (0.8-5.3); ABSOLUTE MONOCYTES 0.2 thou/uL (0.0-1.2); ABSOLUTE NEUTROPHILS 7.7 thou/uL (1.6-8.1); ANISOCYTOSIS 1+; PLATELET ESTIMATE ADEQUATE; POIKILOCYTOSIS 1+
[2021-04-12 08:00] VITALS: BP 99/65
[2021-04-12] MEDS ORDERED: NYAMYC15 GM TOP (12:17)
[2021-04-12] MEDS ORDERED: IPRAT-ALBUT 0.5-3 ML INH (12:17)
[2021-04-12] MEDS ORDERED: METHADONE HCL 110 M1 PO (12:17)
[2021-04-12] MEDS ORDERED: TRAMADOL 50 MG50 MG PO (12:17)
[2021-04-12] MEDS ORDERED: HUMALOG100 UNIT/1 SUBQ (12:17)
[2021-04-12] MEDS ORDERED: PREDNISONE 20 M20 MG PO (12:17)
[2021-04-12] MEDS ORDERED: PROTONIX40 M2 PO (12:17)
[2021-04-12 12:31] LABS: CALCIUM 8.5 mg/dL (8.5-10.1); CREATININE 0.4 mg/dL (0.6-1.3); MAGNESIUM 1.9 mg/dL (1.8-2.4); POTASSIUM 3.5 mmol/L (3.5-5.1)
[2021-04-12 16:26] VITALS: BP 100/55
[2021-04-12 19:31] VITALS: BP 90/60
[2021-04-12 20:00] VITALS: BP 93/63
[2021-04-13] VITALS: BP 111/63
[2021-04-13 04:00] VITALS: BP 123/66
[2021-04-13 07:06] LABS: ABSOLUTE EOSINOPHILS 0.1 thou/uL (0.0-0.7); ABSOLUTE LYMPHOCYTES 3.8 thou/uL (0.8-5.3); ABSOLUTE MONOCYTES 0.6 thou/uL (0.0-1.2); ABSOLUTE NEUTROPHILS 6.3 thou/uL (1.6-8.1); BASOPHILS 0.1 %; EOSINOPHILS 0.9 %; HEMATOCRIT 33.6 % (37.0-47.0); HEMOGLOBIN 11.5 gm/dL (12.0-15.0); LYMPHOCYTES 34.9 %; MCH 29.4 pg (26.0-34.0); MCHC 34.2 g/dL (28.0-37.0); MCV 85.8 fL (80.0-100.0); MONOCYTES 5.9 %; MPV 8.2 fl. (7.2-11.1); NUCLEATED RBCS 0 /100WBC; PLATELET COUNT* 219 thou/uL (150-400); POLYS 58.2 %; RBC 3.92 mil/uL (4.20-5.00); RDW-CV 16.9 % (10.5-14.5); WBC 10.9 thou/uL (4.0-11.0)
[2021-04-13 07:16] LABS: ALBUMIN 2.6 g/dL (3.4-5.0); CALCIUM 9.2 mg/dL (8.5-10.1); CREATININE 0.3 mg/dL (0.6-1.3); TOTAL BILIRUBIN 0.3 mg/dL (<0.1-1.0); TOTAL PROTEIN 5.8 g/dL (6.4-8.2)
[2021-04-13 08:04] VITALS: BP 120/68
[2021-04-13 12:41] VITALS: BP 98/53
[2021-04-13 17:02] VITALS: BP 87/60
[2021-04-13 20:00] VITALS: BP 91/54
[2021-04-14 00:36] VITALS: BP 102/73
[2021-04-14 04:52] VITALS: BP 106/67
[2021-04-14 08:00] VITALS: BP 121/75
[2021-04-14 14:17] VITALS: BP 91/50
[2021-04-14 19:36] VITALS: BP 88/44
[2021-04-15] VITALS (7 sets, daily range): BP systolic 73–94; BP diastolic 40–56
[2021-04-16 09:05] VITALS: BP 114/44
--- NOTE | 2021-05-01 12:48 | CON ---
[address] [address] CONSULTATION Name: JOSEPHTARAZEV FRANCISCO Jose Room: [address] IN M.R.#: [id number] Admission: 03/04/21 Attend Phys: Francis Muñiz MD Discharge: 04/16/21 Date of : 48 Report #: [id number] THIS REPORT FOR: cc: Jennifer Lopes MD, Katrina MD Khosla, Parveen K. MD ~ DOC #: [id number] Everett Meadows MD DATE OF CONSULTATION: 04/04/2021 HISTORY OF PRESENT ILLNESS: A 71-year-old female patient who has a very complicated and prolonged course in the hospital. She has a huge record in the computer and I reviewed as much as I could. I called Dr. Hilton and talked to him. Neurology consultation is requested to evaluate the patient for the possibility of Guillain-Kingsland syndrome. This patient came to emergency room with altered mental status and hallucination and even had a fall. She was found to be in respiratory distress and she has seen multiple consultants since that time. She says she did not have any lung problem before these symptoms started, but I talked to Dr. Hilton and he said that the lung problem has been present since COVID. Apparently, she was well prior to this illness, but I cannot tell how was her situation as far as the weakness is concerned and what was the sensory exam when she came to the emergency room. She smokes and she does vaping. REVIEW OF SYSTEMS: A 14-point review of systems positive for multiple cosmetic surgeries, arthritis, lower back pain, methadone, and partial hysterectomy. PAST MEDICAL HISTORY: Positive as described above. FAMILY HISTORY: Unavailable. SOCIAL HISTORY: She has a history of vaping. PHYSICAL EXAMINATION: GENERAL: The patient's examination indicates she is alert. She is somewhat restless, but she gives me some history, I need to talk to the family. Her memory is poor, but she was able to tell me this is me and what hospital she is in. Cranial nerve examinations appear unremarkable. She is profoundly weak in all 4 extremities, more proximal in the upper extremities, but everything is weak. Her sensation is mostly intact, but her reflexes are very hard to elicit in the lower extremities. There is no meningeal sign in this patient. IMPRESSION AND PLAN: Although the most likely diagnosis in this patient is a critical illness neuropathy, but the possibility of Guillain-Kingsland cannot be completely excluded. If it is, it will be going on [place] [address] CONSULTATION Name: ZEV BAIG Room: [address]#: [id number] Admission: 03/04/21 Attend Phys: Francis Muñiz MD Discharge: 04/16/21 Date of : 48 Report #: [id number] treatment will be difficult. I talked to the patient as much as I can and I will talk to the family in the morning. If we need to do the workup, this patient will need an MRI of the brain and C-spine and if that does not show any pathology, then she will need a spinal tap. All of them can have some complications in a patient like this who is having a lot of respiratory difficulty and we will discuss that with the family in the morning. More than 50 minutes of time was spent taking care of this patient today and majority was spent counseling and coordinating. Everett Meadows MD PK/RANDY <ELECTRONICALLY SIGNED> By: Everett Meadows MD 05/01/21 1248 [id number] [id number] Meadows MD /nt
== END 2021-04-16 10:14 | DRG 870 ==
LOC: M.ERS 19:46 → M.ICU 22:01 → M.2W 22:01 → M.TBA-ER 22:01 → M.2W 23:50 → M.ICU 03-05 09:57 → M.2W 04-02 12:25
PROVIDERS: Family Medicine; Internal Medicine; Internal Medicine Critical Care Medicine; Pediatrics; Personal Emergency Response Attendant; ADMIT Internal Medicine; ATTEND Internal Medicine
PROC: 0BH18EZ Insertion of Endotracheal Airway into Trachea, Via Natural or Artificial Opening Endoscopic (ICD-10-PCS; principal; 2021-03-04)
PROC: 5A1955Z Respiratory Ventilation, Greater than 96 Consecutive Hours (ICD-10-PCS; principal; 2021-03-04)
PROC: 02HV33Z Insertion of Infusion Device into Superior Vena Cava, Percutaneous Approach (ICD-10-PCS; 2021-03-05)
PROC: 5A0935A Assistance with Respiratory Ventilation, Less than 24 Consecutive Hours, High Flow/Velocity Cannula (ICD-10-PCS; 2021-03-05)
PROC: 5A0945A Assistance with Respiratory Ventilation, 24-96 Consecutive Hours, High Flow/Velocity Cannula (ICD-10-PCS; 2021-03-16)
PROC: 5A09357 Assistance with Respiratory Ventilation, Less than 24 Consecutive Hours, Continuous Positive Airway Pressure (ICD-10-PCS; 2021-03-19)
PROC: 5A0945A Assistance with Respiratory Ventilation, 24-96 Consecutive Hours, High Flow/Velocity Cannula (ICD-10-PCS; 2021-03-20)
PROC: 5A09357 Assistance with Respiratory Ventilation, Less than 24 Consecutive Hours, Continuous Positive Airway Pressure (ICD-10-PCS; 2021-03-20)
PROC: 5A1955Z Respiratory Ventilation, Greater than 96 Consecutive Hours (ICD-10-PCS; 2021-03-21)
PROC: 0BH18EZ Insertion of Endotracheal Airway into Trachea, Via Natural or Artificial Opening Endoscopic (ICD-10-PCS; 2021-03-21)
PROC: 5A09357 Assistance with Respiratory Ventilation, Less than 24 Consecutive Hours, Continuous Positive Airway Pressure (ICD-10-PCS; 2021-03-22)
PROC: 5A0945A Assistance with Respiratory Ventilation, 24-96 Consecutive Hours, High Flow/Velocity Cannula (ICD-10-PCS; 2021-03-28)
PROC: 5A0945A Assistance with Respiratory Ventilation, 24-96 Consecutive Hours, High Flow/Velocity Cannula (ICD-10-PCS; 2021-03-29)
PROC: 5A09357 Assistance with Respiratory Ventilation, Less than 24 Consecutive Hours, Continuous Positive Airway Pressure (ICD-10-PCS; 2021-03-29)
PROC: 5A09357 Assistance with Respiratory Ventilation, Less than 24 Consecutive Hours, Continuous Positive Airway Pressure (ICD-10-PCS; 2021-03-30)
PROC: 5A0935A Assistance with Respiratory Ventilation, Less than 24 Consecutive Hours, High Flow/Velocity Cannula (ICD-10-PCS; 2021-03-31)
PROC: 5A09357 Assistance with Respiratory Ventilation, Less than 24 Consecutive Hours, Continuous Positive Airway Pressure (ICD-10-PCS; 2021-03-31)
PROC: 5A0945A Assistance with Respiratory Ventilation, 24-96 Consecutive Hours, High Flow/Velocity Cannula (ICD-10-PCS; 2021-04-01)
PROC: 5A09357 Assistance with Respiratory Ventilation, Less than 24 Consecutive Hours, Continuous Positive Airway Pressure (ICD-10-PCS; 2021-04-05)
PROC: 5A0935A Assistance with Respiratory Ventilation, Less than 24 Consecutive Hours, High Flow/Velocity Cannula (ICD-10-PCS; 2021-04-05)
PROC: 5A0945A Assistance with Respiratory Ventilation, 24-96 Consecutive Hours, High Flow/Velocity Cannula (ICD-10-PCS; 2021-04-06)
PROC: 5A0935A Assistance with Respiratory Ventilation, Less than 24 Consecutive Hours, High Flow/Velocity Cannula (ICD-10-PCS; 2021-04-07)
PROC: 5A0935A Assistance with Respiratory Ventilation, Less than 24 Consecutive Hours, High Flow/Velocity Cannula (ICD-10-PCS; 2021-04-08)
PROC: 5A0935A Assistance with Respiratory Ventilation, Less than 24 Consecutive Hours, High Flow/Velocity Cannula (ICD-10-PCS; 2021-04-09)
PROC: 5A0935A Assistance with Respiratory Ventilation, Less than 24 Consecutive Hours, High Flow/Velocity Cannula (ICD-10-PCS; 2021-04-10)
PROC: 5A0935A Assistance with Respiratory Ventilation, Less than 24 Consecutive Hours, High Flow/Velocity Cannula (ICD-10-PCS; 2021-04-11)
PROC: 5A0935A Assistance with Respiratory Ventilation, Less than 24 Consecutive Hours, High Flow/Velocity Cannula (ICD-10-PCS; 2021-04-12)
PROC: 5A0935A Assistance with Respiratory Ventilation, Less than 24 Consecutive Hours, High Flow/Velocity Cannula (ICD-10-PCS; 2021-04-13)
PROC: 5A0935A Assistance with Respiratory Ventilation, Less than 24 Consecutive Hours, High Flow/Velocity Cannula (ICD-10-PCS; 2021-04-14)
PROC: 5A0935A Assistance with Respiratory Ventilation, Less than 24 Consecutive Hours, High Flow/Velocity Cannula (ICD-10-PCS; 2021-04-15)
PROC: 5A0935A Assistance with Respiratory Ventilation, Less than 24 Consecutive Hours, High Flow/Velocity Cannula (ICD-10-PCS; 2021-04-16)
DX: A41.9 Sepsis, unspecified organism (principal); J15.6 Pneumonia due to other Gram-negative bacteria; R65.21 Severe sepsis with septic shock; J80 Acute respiratory distress syndrome; J69.0 Pneumonitis due to inhalation of food and vomit; G93.1 Anoxic brain damage, not elsewhere classified; E44.1 Mild protein-calorie malnutrition; J44.1 Chronic obstructive pulmonary disease with (acute) exacerbation; J44.0 Chronic obstructive pulmonary disease with (acute) lower respiratory infection; E87.0 Hyperosmolality and hypernatremia; G89.29 Other chronic pain; M54.9 Dorsalgia, unspecified; M17.0 Bilateral primary osteoarthritis of knee; M47.9 Spondylosis, unspecified; D64.9 Anemia, unspecified; B37.9 Candidiasis, unspecified; K86.9 Disease of pancreas, unspecified; Z66 Do not resuscitate; Z51.5 Encounter for palliative care; Z79.899 Other long term (current) drug therapy; Z90.711 Acquired absence of uterus with remaining cervical stump; Z68.22 Body mass index [BMI] 22.0-22.9, adult